=== PATIENT | female | born 1950 | race Caucasian/White ===

== ENCOUNTER 2018-10-13 02:55 | Emergency (ER) | payer SELFPAY ==
--- OUTSIDE RECORDS SUMMARY | 2018-10-13 02:58 | XMS REPORT | Clinical Summary ---
Author Author [facility] Organization [facility] Address Unknown Phone Unavailable Care Team Providers Care [employer] Faculty Name Role Phone Asked, No Pcp PCP Unavailable Allergies No Known Allergies Medications End Date Status Medication Sig Dispensed Refills Start Date Active insulin 70/30 NPH and Inject under 0 regular human (HumuLIN the skin 2 70/30) 100 unit/mL (two) times a (70-30) injection day before meals. 05/17/2018 metroNIDAZOLE (FLAGYL) Take 1 tablet 15 tablet 0 500 MG tablet (500 mg 9 total) by mouth 3 (three) times a day for 5 days. 05/17/2018 ciprofloxacin HCl (CIPRO) Take 1 tablet 10 tablet 0 500 MG tablet (500 mg 9 total) by mouth 2 (two) times a day for 5 days. 05/19/2018 acetaminophen-codeine Take 1 tablet 21 tablet 0 (TYLENOL WITH CODEINE #3) by mouth 9 300-30 mg per tablet every 8 (eight) hours as needed for moderate pain for up to 7 days. 06/11/2018 lisinopril Take 1 tablet 30 tablet 0 (PRINIVIL,ZESTRIL) 20 mg (20 mg total) 9 tablet by mouth daily for 30 days. Active Problems Problem Noted Date Acute diverticulitis 05/09/2018 Encounters Care Team Description Date Type Specialty Brandon Oakes MD Yerramadha, Muralidhar Reddy, MD Acute diverticulitis (Primary Dx); Lower abdominal pain; Leukocytosis, unspecified type; Dehydration; Hyponatremia; Urinary tract infection with hematuria, site unspecified; Essential hypertension, benign 05/08/2018 [facility] General Internal Medicine - Encounter 05/12/2018 after 10/12/2017 Social History Date Tobacco Use Types Packs/Day Years Used Current Every Day Smoker 0.5 Smokeless Tobacco: Current User Alcohol Use Drinks/Week oz/Week Comments No Alcohol Habits Answer Date Recorded How often do you have a drink containing alcohol? Never 05/09/2018 How many drinks containing alcohol do you have on Not asked a typical day when you are drinking? How often do you have six or more drinks on one Not asked occasion? Sex Assigned at Date Recorded Not on file Industry Job Start Date Occupation Not on file Not on file Not on file Travel End Travel History Travel Start No recent travel history available. Last Filed Vital Signs Time Taken Vital Sign Reading 05/12/2018 11:19 AM RESOURCE DEVELOPMENT MANAGER Blood Pressure 174/74 05/12/2018 11:19 AM RESOURCE DEVELOPMENT MANAGER Pulse 77 05/12/2018 11:19 AM RESOURCE DEVELOPMENT MANAGER Temperature 36.4 C (97.6 F) 05/12/2018 11:19 AM RESOURCE DEVELOPMENT MANAGER Respiratory Rate 18 05/12/2018 11:19 AM RESOURCE DEVELOPMENT MANAGER Oxygen Saturation 93% - Inhaled Oxygen - Concentration - Weight - 05/08/2018 10:40 PM RESOURCE DEVELOPMENT MANAGER Height 162.6 cm (5' 4") - Body Mass Index - Plan of Treatment Health Maintenance Due Date Last Done Comments BREAST CANCER SCREENING 2002 COLONOSCOPY SCREENING 2002 SHINGLES VACCINES (#1) 2002 65+ PNEUMOCOCCAL VACCINE 2017 (1 of 2 - PCV13) INFLUENZA VACCINE 10/26/2018 Procedures Comments Procedure Name Priority Date/Time Associated Diagnosis POC GLUCOSE Routine 05/12/2018 11:21 AM RESOURCE DEVELOPMENT MANAGER ESTIMATED GFR Routine 05/12/2018 5:51 AM RESOURCE DEVELOPMENT MANAGER BASIC METABOLIC PANEL Routine 05/12/2018 5:51 AM RESOURCE DEVELOPMENT MANAGER HC COMPLETE BLD COUNT Routine 05/12/2018 W/AUTO DIFF 5:51 AM RESOURCE DEVELOPMENT MANAGER POC GLUCOSE Routine 05/12/2018 5:42 AM RESOURCE DEVELOPMENT MANAGER POC GLUCOSE Routine 05/11/2018 9:00 PM RESOURCE DEVELOPMENT MANAGER POC GLUCOSE Routine 05/11/2018 4:23 PM RESOURCE DEVELOPMENT MANAGER POC GLUCOSE Routine 05/11/2018 11:07 AM RESOURCE DEVELOPMENT MANAGER HC COMPLETE BLD COUNT Routine 05/11/2018 W/AUTO DIFF 6:15 AM RESOURCE DEVELOPMENT MANAGER POC GLUCOSE Routine 05/11/2018 6:10 AM RESOURCE DEVELOPMENT MANAGER POC GLUCOSE Routine 05/10/2018 8:29 PM RESOURCE DEVELOPMENT MANAGER POC GLUCOSE Routine 05/10/2018 3:57 PM RESOURCE DEVELOPMENT MANAGER POC GLUCOSE Routine 05/10/2018 11:14 AM RESOURCE DEVELOPMENT MANAGER POC GLUCOSE Routine 05/10/2018 5:38 AM RESOURCE DEVELOPMENT MANAGER ESTIMATED GFR Routine 05/10/2018 5:30 AM RESOURCE DEVELOPMENT MANAGER HC COMPLETE BLD COUNT Routine 05/10/2018 W/AUTO DIFF 5:30 AM RESOURCE DEVELOPMENT MANAGER BASIC METABOLIC PANEL Routine 05/10/2018 5:30 AM RESOURCE DEVELOPMENT MANAGER CLOSTRIDIUM DIFFICILE Routine 05/10/2018 TOXIN 12:14 AM RESOURCE DEVELOPMENT MANAGER POC GLUCOSE Routine 05/09/2018 8:05 PM RESOURCE DEVELOPMENT MANAGER POC GLUCOSE Routine 05/09/2018 5:16 PM RESOURCE DEVELOPMENT MANAGER POC GLUCOSE Routine 05/09/2018 12:26 PM RESOURCE DEVELOPMENT MANAGER LACTIC ACID LEVEL, SEPSIS Timed 05/09/2018 - NOW AND REPEAT 2X EVERY 6:38 AM RESOURCE DEVELOPMENT MANAGER 3 HOURS POC GLUCOSE Routine 05/09/2018 6:27 AM RESOURCE DEVELOPMENT MANAGER LACTIC ACID LEVEL, SEPSIS Timed 05/09/2018 - NOW AND REPEAT 2X EVERY 4:33 AM RESOURCE DEVELOPMENT MANAGER [address] ABDOMEN PELVIS W STAT 05/09/2018 CONTRAST 12:05 AM RESOURCE DEVELOPMENT MANAGER GRAM STAIN STAT 05/08/2018 11:40 PM RESOURCE DEVELOPMENT MANAGER URINE CULTURE STAT 05/08/2018 11:40 PM RESOURCE DEVELOPMENT MANAGER ESTIMATED GFR STAT 05/08/2018 11:15 PM RESOURCE DEVELOPMENT MANAGER TROPONIN STAT 05/08/2018 11:15 PM RESOURCE DEVELOPMENT MANAGER CREATINE KINASE, TOTAL STAT 05/08/2018 (CPK) 11:15 PM RESOURCE DEVELOPMENT MANAGER LIPASE LEVEL STAT 05/08/2018 11:15 PM RESOURCE DEVELOPMENT MANAGER LACTIC ACID LEVEL, SEPSIS STAT 05/08/2018 - NOW AND REPEAT 2X EVERY 11:15 PM RESOURCE DEVELOPMENT MANAGER 3 HOURS COMPREHENSIVE METABOLIC STAT 05/08/2018 PANEL 11:15 PM RESOURCE DEVELOPMENT MANAGER URINALYSIS SCREEN AND STAT 05/08/2018 MICROSCOPY, WITH REFLEX 11:15 PM RESOURCE DEVELOPMENT MANAGER TO CULTURE PARTIAL THROMBOPLASTIN STAT 05/08/2018 TIME (PTT) 11:15 PM RESOURCE DEVELOPMENT MANAGER PROTHROMBIN TIME WITH INR STAT 05/08/2018 11:15 PM RESOURCE DEVELOPMENT MANAGER HC COMPLETE BLD COUNT STAT 05/08/2018 W/AUTO DIFF 11:15 PM RESOURCE DEVELOPMENT MANAGER ECG ED PRELIMINARY Routine 05/08/2018 INTERPRETATION 11:00 PM RESOURCE DEVELOPMENT MANAGER XR CHEST 1 VW PORTABLE STAT 05/08/2018 10:55 PM RESOURCE DEVELOPMENT MANAGER ECG 12-LEAD STAT 05/08/2018 10:49 PM RESOURCE DEVELOPMENT MANAGER after 10/12/2017 Results * POC glucose (05/12/2018 11:21 AM RESOURCE DEVELOPMENT MANAGER) Only the most recent of 14 results within the time period is included. [facility] POC glucose 135 (H) 65 - 99 mg/dL [facility] Comment: [facility] Meter ID: [id number] [facility] Extractor Operator Solvent Process: Herman Larsen Specimen Performing Organization Address City/State/Zipcode [place] [address] [place] [address] PATHOLOGY AND GENOMIC MEDICINE [facility] [place] [address] [address] [facility] * Estimated GFR (05/12/2018 5:51 AM RESOURCE DEVELOPMENT MANAGER) Only the most recent of 3 results within the time period is included. [facility] Estimated GFR >=90 mL/min/1.73 m2 [facility] Comment: [facility] rpretation G1 >=90 Normal or high G2 60-89Mildly decreased [id number] Mildly to moderately decreased [id number] Moderately to severely decreased G4 15-29Severely decreased G5 <15Kidney failure The eGFR was calculated using the Chronic Kidney Disease Epidemiology Collaboration (CKD-EPI) equation. Interpretation is based on recommendations of the National Kidney Foundation-Kidney Disease Outcomes Quality Initiative (NKF-KDOQI) published in 2014. Specimen Plasma specimen Performing Organization Address City/State/Zipcode [place] [address] [place] [address] [facility] [address] [place] [address] [facility] * CBC with platelet and differential (05/12/2018 5:51 AM RESOURCE DEVELOPMENT MANAGER) Only the most recent of 4 results within the time period is included. WBC 12.69 (H) 4.50 - 11.00 k/uL [facility] RBC 4.90 4.20 - 5.50 m/uL [facility] HGB 13.8 12.0 - 16.0 g/dL [facility] HCT 42.4 37.0 - 47.0 % [facility] MCV 86.5 82.0 - 100.0 fL [facility] MCH 28.2 27.0 - 34.0 pg [facility] MCHC 32.5 31.0 - 37.0 g/dL [facility] RDW - SD 37.2 37.0 - 55.0 fL [facility] MPV 9.5 8.8 - 13.2 fL [facility] Platelet count 493 (H) 150 - 400 k/uL [facility] Nucleated RBC 0.00 /100 WBC [facility] Neutrophils 63.6 39.0 - 69.0 % [facility] Lymphocytes 22.9 (L) 25.0 - 45.0 % [facility] Monocytes 11.0 (H) 0.0 - 10.0 % [facility] Eosinophils 1.3 0.0 - 5.0 % [facility] Basophils 0.6 0.0 - 1.0 % [facility] Specimen Blood Performing Organization Address [facility] Phone Number [address] [place] [address] PATHOLOGY AND GENOMIC MEDICINE [address] * Basic metabolic panel (05/12/2018 5:51 AM RESOURCE DEVELOPMENT MANAGER) Only the most recent of 2 results within the time period is included. [facility] Sodium 135 135 - 148 mEq/L [facility] Potassium 3.9 3.5 - 5.0 mEq/L [facility] Chloride 96 (L) 98 - 112 mEq/L [facility] CO2 25 24 - 31 mEq/L [facility] Anion gap 14@ANIO 7 - 15 mEq/L [facility] BUN 9 8 - 23 mg/dL [facility] Creatinine 0.50 0.50 - 0.90 mg/dL [facility] Glucose 143 (H) 65 - 99 mg/dL [facility] Calcium 8.9 8.8 - 10.2 mg/dL [facility] Specimen Plasma specimen Performing Organization Address [facility] Phone Number [address] [place] [address] PATHOLOGY AND [facility] MEDICINE [address] * C difficile toxin (05/10/2018 12:14 AM RESOURCE DEVELOPMENT MANAGER) [facility] Clostridium No Clostridium difficle toxin [facility] difficile toxin present [facility] Comment: HOSPITAL Specimen Information Specimen Source: Stool Specimen Site: Nonpreserved Specimen Stool - Nonpreserved Performing Organization Address City/[facility]/Zipcode Phone Number [facility] [place] [address] PATHOLOGY [address] * Lactic acid level, SEPSIS - Now and repeat 2x every 3 hours (05/09/2018 6:38 AM RESOURCE DEVELOPMENT MANAGER) Only the most recent of 3 results within the time period is included. [facility] Lactic acid 1.4 0.5 - 2.2 mmol/L [facility] Specimen Plasma specimen Performing Organization Address City/State/Zipcode [place] [address] [place] [address] [address] [facility] [address] [place] [address] [facility] * CT Abdomen Pelvis W Contrast (05/09/2018 12:05 AM RESOURCE DEVELOPMENT MANAGER) Specimen Narrative Performed At CT ABDOMEN PELVIS W CONTRAST RADIANT CLINICAL INDICATION: lower abd pain TECHNIQUE:Multidetector CT imaging of the abdomen and pelvis was performed following the intravenous administration of iodinated contrast with multiplanar reconstructions.CT imaging was performed with iterative reconstruction technique and/or automated exposure control to reduce radiation dose. COMPARISON:None FINDINGS: LOWER THORAX:Clear. LIVER:Normal. BILIARY:Normal. SPLEEN:Normal. PANCREAS:Normal. ADRENALS:Normal. KIDNEYS:No mass or hydronephrosis. GI: There is diverticulosis of the sigmoid colon with wall thickening and pericolonic edema of the proximal sigmoid colon. There is thin soft tissue thickening/fluid extending from this inflamed sigmoid colon to the superior aspect of the urinary bladder without a definite fistulous tract. There is associated wall thickening of the superior urinary bladder. There is dilation of multiple loops of proximal small bowel, measuring up to a maximum of 3.4 cm in diameter. There is a transition point located within the left lower quadrant. VASCULAR:There is calcified atherosclerotic disease of the abdominal aorta and iliac arteries. The abdominal aorta is normal in caliber. LYMPH NODES:There are prominent subcentimeter iliac chain, retroperitoneal, and mesenteric root lymph nodes, which are likely reactive in nature. PELVIS:There is wall thickening of the superior aspect of the urinary bladder. There is a calcified uterine fibroid. BONES:There are no acute osseous abnormalities. OTHER:There is no ascites or pneumoperitoneum. IMPRESSION: 1. Sigmoid colon diverticulitis with a thin tract of inflammation extending from the colon to the superior aspect of the urinary bladder. No definite colovesicular fistula is identified at this time, but there is reactive inflammation of the urinary bladder. 2. Low to moderate grade small bowel obstruction with the transition point located in the left lower quadrant. [facility]-[id number] Procedure Note Interface, Radiology Results Incoming - 05/09/2018 12:20 AM RESOURCE DEVELOPMENT MANAGER CT ABDOMEN PELVIS W CONTRAST CLINICAL INDICATION: lower abd pain TECHNIQUE: Multidetector CT imaging of the abdomen and pelvis was performed following the intravenous administration of iodinated contrast with multiplanar reconstructions. CT imaging was performed with iterative reconstruction technique and/or automated exposure control to reduce radiation dose. COMPARISON: None FINDINGS: LOWER THORAX: Clear. LIVER: Normal. BILIARY: Normal. SPLEEN: Normal. PANCREAS: Normal. ADRENALS: Normal. KIDNEYS: No mass or hydronephrosis. GI: There is diverticulosis of the sigmoid colon with wall thickening and pericolonic edema of the proximal sigmoid colon. There is thin soft tissue thickening/fluid extending from this inflamed sigmoid colon to the superior aspect of the urinary bladder without a definite fistulous tract. There is associated wall thickening of the superior urinary bladder. There is dilation of multiple loops of proximal small bowel, measuring up to a maximum of 3.4 cm in diameter. There is a transition point located within the left lower quadrant. VASCULAR: There is calcified atherosclerotic disease of the abdominal aorta and iliac arteries. The abdominal aorta is normal in caliber. LYMPH NODES: There are prominent subcentimeter iliac chain, retroperitoneal, and mesenteric root lymph nodes, which are likely reactive in nature. PELVIS: There is wall thickening of the superior aspect of the urinary bladder. There is a calcified uterine fibroid. BONES: There are no acute osseous abnormalities. OTHER: There is no ascites or pneumoperitoneum. IMPRESSION: 1. Sigmoid colon diverticulitis with a thin tract of inflammation extending from the colon to the superior aspect of the urinary bladder. No definite colovesicular fistula is identified at this time, but there is reactive inflammation of the urinary bladder. 2. Low to moderate grade small bowel obstruction with the transition point located in the left lower quadrant. [facility]-[id number] Performing Organization Address City/[facility]/Zipcode Phone Number [facility] [address] [place] [address] * Gram stain (05/08/2018 11:40 PM RESOURCE DEVELOPMENT MANAGER) Gram stain No WBC's or organisms seen. [facility] result Comment: [facility] Specimen Information HOSPITAL Specimen Source: Urine Specimen Site: Clean catch Specimen Urine Performing Organization Address City/[facility]/Zipcode Phone Number [facility] DEPARTMENT [address] [address] PATHOLOGY AND GENOMIC MEDICINE [facility] [address] * Urine culture (05/08/2018 11:40 PM RESOURCE DEVELOPMENT MANAGER) Urine culture Klebsiella pneumoniae JARED isolate >10-5 cfu/ml [facility] The performance HOSPITAL characteristics of this assay on this isolate were validated by the Microbiology Laboratory at [facility].This source has not been approved by the U.S. Food and Drug Administration.The results are not intended to be used as the sole means for clinical diagnosis or patient management.The Microbiology Laboratory is authorized under the clinical Laboratory Improvement Amendments of 1988 (CLIA-88) to perform high complexity testing. (A) Comment: Specimen Information Specimen Source: Urine Specimen Site: Clean catch Urine culture Escherichia coli JARED isolate >10-5 cfu/ml [facility] (A) HOSPITAL Specimen Urine Antibiotic Method Susceptibility Organism Ampicillin JAZZMINE >16 mcg/mL: Resistant Klebsiella pneumoniae Amoxicillin/Clavulanate JAZZMINE <=2/1 mcg/mL: Susceptible Klebsiella pneumoniae Amikacin JAZZMINE <=4 mcg/mL: Susceptible Klebsiella pneumoniae Aztreonam JAZZMINE <=1 mcg/mL: Susceptible Klebsiella pneumoniae Ceftazidime JAZZMINE <=0.5 mcg/mL: Susceptible Klebsiella pneumoniae Ciprofloxacin JAZZMINE <=0.5 mcg/mL: Susceptible Klebsiella pneumoniae Ceftriaxone JAZZMINE <=0.5 mcg/mL: Susceptible Klebsiella pneumoniae Cefuroxime Sodium JAZZMINE <=4 mcg/mL: Susceptible Klebsiella pneumoniae Cefazolin JAZZMINE <=1 mcg/mL: Susceptible Klebsiella pneumoniae Cefepime JAZZMINE <=0.5 mcg/mL: Susceptible Klebsiella pneumoniae Nitrofurantoin JAZZMINE 64 mcg/mL: Resistant Klebsiella pneumoniae Cefoxitin JAZZMINE <=4 mcg/mL: Susceptible Klebsiella pneumoniae Gentamicin JAZZMINE 1 mcg/mL: Susceptible Klebsiella pneumoniae Imipenem JAZZMINE <=0.25 mcg/mL: Susceptible Klebsiella pneumoniae Levofloxacin JAZZMINE <=1 mcg/mL: Susceptible Klebsiella pneumoniae Meropenem JAZZMINE <=0.125 mcg/mL: Susceptible Klebsiella pneumoniae Tobramycin JAZZMINE 1 mcg/mL: Susceptible Klebsiella pneumoniae Ampicillin/Sulbactam JAZZMINE 8/4 mcg/mL: Susceptible Klebsiella pneumoniae Trimethoprim/Sulfamethoxazole JAZZMINE <=0.5/9.5 mcg/mL: Susceptible Klebsiella pneumoniae Tetracycline JAZZMINE 2 mcg/mL: Susceptible Klebsiella pneumoniae Piperacillin/Tazobactam JAZZMINE 4/4 mcg/mL: Susceptible Klebsiella pneumoniae Ertapenem JAZZMINE <=0.125 mcg/mL: Susceptible Klebsiella pneumoniae Tigecycline JAZZMINE 1 mcg/mL: Susceptible Klebsiella pneumoniae Ampicillin JAZZMINE <=2 mcg/mL: Susceptible Escherichia coli Amoxicillin/Clavulanate JAZZMINE 4/2 mcg/mL: Susceptible Escherichia coli Amikacin JAZZMINE <=4 mcg/mL: Susceptible Escherichia coli Aztreonam JAZZMINE <=1 mcg/mL: Susceptible Escherichia coli Ceftazidime JAZZMINE <=0.5 mcg/mL: Susceptible Escherichia coli Ciprofloxacin JAZZMINE <=0.5 mcg/mL: Susceptible Escherichia coli Ceftriaxone JAZZMINE <=0.5 mcg/mL: Susceptible Escherichia coli Cefuroxime Sodium JAZZMINE <=4 mcg/mL: Susceptible Escherichia coli Cefazolin JAZZMINE <=1 mcg/mL: Susceptible Escherichia coli Cefepime JAZZMINE <=0.5 mcg/mL: Susceptible Escherichia coli Nitrofurantoin JAZZMINE 32 mcg/mL: Susceptible Escherichia coli Cefoxitin JAZZMINE <=4 mcg/mL: Susceptible Escherichia coli Gentamicin JAZZMINE <=1 mcg/mL: Susceptible Escherichia coli Imipenem JAZZMINE <=0.25 mcg/mL: Susceptible Escherichia coli Levofloxacin JAZZMINE <=1 mcg/mL: Susceptible Escherichia coli Meropenem JAZZMINE <=0.125 mcg/mL: Susceptible Escherichia coli Tobramycin JAZZMINE 1 mcg/mL: Susceptible Escherichia coli Ampicillin/Sulbactam JAZZMINE 4/2 mcg/mL: Susceptible Escherichia coli Trimethoprim/Sulfamethoxazole JAZZMINE <=0.5/9.5 mcg/mL: Susceptible Escherichia coli Tetracycline JAZZMINE <=1 mcg/mL: Susceptible Escherichia coli Piperacillin/Tazobactam JAZZMINE <=2/4 mcg/mL: Susceptible Escherichia coli Ertapenem JAZZMINE <=0.125 mcg/mL: Susceptible Escherichia coli Tigecycline JAZZMINE <=0.5 mcg/mL: Susceptible Escherichia coli Performing Organization Address City/State/Zipcode Phone Number [facility] DEPARTMENT OF [address] [place] [address] PATHOLOGY AND GENOMIC MEDICINE [address] * Urinalysis screen and microscopy, with reflex to culture (05/08/2018 11:15 PM RESOURCE DEVELOPMENT MANAGER) Specimen site Clean catch [facility] Color, UA Yellow [facility] Appearance, UA Slightly-Cloudy [facility] Specific 1.026 1.001 - 1.035 [facility] gravity, UA [facility] pH, UA 5.0 5.0 - 8.5 [facility] Protein, UA 1+ (A) Negative [facility] Glucose, UA Negative Negative [facility] Ketones, UA 1+ (A) Negative [facility] Bilirubin, UA Negative Negative [facility] Blood, UA Large (A) Negative [facility] Nitrite, UA Negative Negative [facility] Urobilinogen, Negative <2.0 [facility] Leukocyte Trace (A) Negative [facility] esterase, UA [facility] Epithelial Many /HPF [facility] cells, UA [facility] Round Few 0 - 1 /HPF [facility] epithelial [facility], [facility] WBC, UA 11-20 (H) 0 - 4 /HPF [facility] RBC, UA 61-80 (H) 0 - 5 /HPF [facility] Bacteria, UA Trace None seen [facility] Yeast, UA None seen [facility] Yeast with None seen [facility] Specimen Urine Performing Organization Address City/[facility] Phone Number [address] [place] [address] PATHOLOGY AND GENOMIC MEDICINE [address] * Troponin (05/08/2018 11:15 PM RESOURCE DEVELOPMENT MANAGER) [facility] Troponin <0.300 0.000 - 0.300 ng/mL [facility] Comment: [facility] 0.30 - 1.49 [facility] ng/mlMay indicate increased risk of acute coronary syndrome. >=1.5 ng/ml Consistent with acute myocardial infarction. The diagnostic value of a single normal or non-diagnostic result is questionable.Serial samples at 2-6 hour intervals are required to rule out acute myocardial injury. Specimen Plasma specimen Performing Organization Address [facility] Phone Number [address] [place] [address] PATHOLOGY AND GENOMIC MEDICINE [address] * Partial thromboplastin time, activated (05/08/2018 11:15 PM RESOURCE DEVELOPMENT MANAGER) [facility] PTT 38.2 (H) 23.0 - 36.0 sec [facility] Comment: EMIL [facility]OLCOM[facility] PTT therapeutic range for [facility] unfractionated heparin is 61.0-112.0 seconds which corresponds to Anti-Xa 0.3-0.7 U/ml. Specimen Blood Performing Organization Address [facility] Phone Number [address] [place] [address] PATHOLOGY AND [address] * Prothrombin time with INR (05/08/2018 11:15 PM RESOURCE DEVELOPMENT MANAGER) Prothrombin 14.1 11.5 - 14.5 sec [facility] INR 1.1 [facility] Comment: EMIL HOLCOM[facility] The International Normalized [facility] Ratio (INR) is a therapeutic monitoring tool for patients who are stable on oral anticoagulant therapy. An INR of 2.0-3.0 is suggested for deep vein thrombosis/pulmonary embolism. Specimen Blood Performing Organization Address [facility] Phone Number [address] [place] [address] PATHOLOGY AND [address] * Lipase level (05/08/2018 11:15 PM RESOURCE DEVELOPMENT MANAGER) Pathologist [facility] Lipase 12 (L) 13 - 60 U/L [facility] Specimen Plasma specimen Performing Organization Address [facility] Phone Number [address] [place] [address] PATHOLOGY [address] * Creatine kinase, total (CPK) (05/08/2018 11:15 PM RESOURCE DEVELOPMENT MANAGER) Creatine kinase 50 26 - 192 U/L [facility] Specimen Plasma specimen Performing Organization Address [facility] Phone Number [address] [place] [address] PATHOLOGY AND [address] * Comprehensive metabolic panel (05/08/2018 11:15 PM RESOURCE DEVELOPMENT MANAGER) Sodium 132 (L) 135 - 148 mEq/L [facility] Potassium 3.7 3.5 - 5.0 mEq/L [facility] Chloride 93 (L) 98 - 112 mEq/L [facility] CO2 26 24 - 31 mEq/L [facility] Anion gap 13@ANIO 7 - 15 mEq/L [facility] BUN 29 (H) 8 - 23 mg/dL [facility] Creatinine 0.70 0.50 - 0.90 mg/dL [facility] Glucose 229 (H) 65 - 99 mg/dL [facility] Calcium 9.2 8.8 - 10.2 mg/dL [facility] Protein 9.1 (H) 6.3 - 8.3 g/dL [facility] Comment: [facility] 4.6-7.0 g/dL 1 week 4.4-7.6 g/dL 7 months-1year 5.1-7.3 g/dL 1-2 years5.6-7 .5 g/dL >3 years6.0-8 .0 g/dL 18-150 6.3-8.3 g/dL Albumin 4.1 3.5 - 5.0 g/dL [facility] A/G ratio 0.8 0.7 - 3.8 [facility] Alkaline 91 35 - 104 U/L [facility] phosphatase [facility] AST 17 10 - 35 U/L [facility] ALT 13 5 - 50 U/L [facility] Total bilirubin 0.5 0.0 - 1.2 mg/dL [facility] Specimen Plasma specimen Performing Organization Address City/State/Zipcode Phone Number [facility] [id number] [place] [address] [place] [address] [address] [facility] [id number] [place] [address] * ECG ED Preliminary Interpretation - Not an Order (05/08/2018 11:00 PM RESOURCE DEVELOPMENT MANAGER) Narrative Performed At Peggy Smart NP-C 05/09/2018 11:56 AM ECG ED Preliminary Interpretation - Not an Order Performed by: Peggy Smart NP-C Authorized by: Brandon Oakes MD ECG reviewed by ED Physician in the absence of a manufacturing supervisor 2nd shift: yes Previous ECG: Previous ECG:Unavailable Interpretation: Interpretation: abnormal Rate: ECG rate:97 ECG rate assessment: normal Rhythm: Rhythm: sinus rhythm Ectopy: Ectopy: PVCs PVCs:Infrequent QRS: QRS axis:Normal Conduction: Conduction: normal ST segments: ST segments:Non-specific T waves: T waves: non-specific * XR Chest 1 Vw Portable (05/08/2018 10:55 PM RESOURCE DEVELOPMENT MANAGER) Specimen Narrative Performed At EXAMINATION:XR CHEST 1 VW PORTABLE [facility] CLINICAL HISTORY:abd pain COMPARISON:To previous study from 03/10/2012 IMPRESSION: Clips are present projected over the right chest. The heart is normal in appearance, and the lungs are clear. [facility]-[id number] Procedure Note Hm Interface, Radiology Results Incoming - 05/08/2018 11:01 PM RESOURCE DEVELOPMENT MANAGER EXAMINATION: XR CHEST 1 VW PORTABLE CLINICAL HISTORY: abd pain COMPARISON: To previous study from 03/10/2012 IMPRESSION: Clips are present projected over the right chest. The heart is normal in appearance, and the lungs are clear. [facility]-[id number] Performing Organization Address City/[facility] Phone Number [facility] [address] [place] [address] * ECG 12 lead (05/08/2018 10:49 PM RESOURCE DEVELOPMENT MANAGER) Ventricular 97 [facility] rate Atrial rate 97 [facility] VT interval 126 [facility] QRSD interval 74 [facility] QT interval 340 [facility] QTC interval 431 [facility] P axis 1 73 [facility] QRS axis 1 50 [facility] T wave axis 61 [facility] EKG impression Sinus rhythm with occasional [facility] premature ventricular complexes-Nonspecific ST and T wave abnormality-Abnormal ECG-In automated comparison with ECG of 07-MAR-2012 16:50,-premature ventricular complexes are now present-ST now depressed in Anterior leads- Specimen Narrative Performed At Performing Organization Address City/[facility] Phone Number [facility] [address] [place] [address] after 10/12/2017 Insurance Type Payer Benefit Subscriber ID Effective Phone Address Plan / Dates Group Medicaid PENDING MEDICAID PENDING xxxxxxxxx 2018- [address] MEDICAID Present [id number] [place] [address] Medicare MEDICARE MEDICARE xxxxxxxxxxx 2017-P JARED, PART A AND resent [place] B Advance Directives Patient has advance care planning documents on file. For more information, queenie carrillo contact: Jared Saleh [address] [place] [address]
--- OUTSIDE RECORDS SUMMARY | 2018-10-13 02:58 | XMS REPORT ---
[facility] Address Unknown Phone Unavailable Care Team Providers Care Head Strength And Conditioning Coach Name Role Phone Unavailable Unavailable Problems This patient has no known problems. Allergies, Adverse Reactions, Alerts This patient has no known allergies or adverse reactions. Medications This patient has no known medications. Encounters Start Date/Time End Date/Time Encounter Type Admission Type Attending [facility] Care Department Encounter ID 2017-07-01 00:00:00 2017-07-01 00:00:00 Outpatient [facility] [id number] 2017-07-01 00:00:00 2017-07-01 00:00:00 Outpatient [facility] [id number] 2017-07-01 00:00:00 2017-07-01 00:00:00 Outpatient [facility] [id number] 2017-06-01 15:43:18 2017-06-01 15:43:18 Outpatient [facility] [id number] 2017-04-20 00:00:00 2017-04-20 00:00:00 Outpatient [facility] [id number] 2017-04-12 00:00:00 2017-04-12 00:00:00 Outpatient [facility] [id number] 2017-04-08 00:00:00 2017-04-08 00:00:00 Outpatient [facility] [id number] 2017-04-08 00:00:00 2017-04-08 00:00:00 Outpatient [facility] [id number] 2017-03-14 12:30:44 2017-03-14 12:30:44 Outpatient [facility] [id number] 2017-03-04 09:59:58 2017-03-04 09:59:58 Outpatient [facility] [id number] 2017-03-04 09:52:32 2017-03-04 09:52:32 Outpatient [facility] [id number] 2017-03-04 00:00:00 2017-03-04 00:00:00 Outpatient [facility] [id number] 2017-01-24 00:00:00 2017-01-24 00:00:00 Outpatient [facility] [id number] 2016-09-10 00:00:00 2016-09-10 00:00:00 Outpatient [facility] [id number] 2016-09-03 09:09:37 2016-09-03 09:09:37 Outpatient [facility] [id number] 2016-09-03 07:51:47 2016-09-03 07:51:47 Outpatient [facility] [id number] 2016-08-18 11:33:00 2016-08-18 11:33:00 Emergency [facility] [id number]
== END 2018-10-13 03:16 | disposition left against medical advice (07) ==
LOC: ER 02:55
DX: Z53.21 Procedure and treatment not carried out due to patient leaving prior to being seen by health care provider (principal)

== ENCOUNTER 2018-10-16 13:37 | Inpatient (IN) | payer MEDICARE ==
[~2018-10-16] VITALS: Ht 162.6 cm; Wt 70.8 kg
[2018-10-16] MEDS ORDERED: DIATRIZOATE MEGL/DIATRIZOA SOD 30 ML BTL PO ONE (14:26)
[2018-10-16 14:43] LABS: BASOPHILS # (AUTO) 0.1 (0.0-0.1); BASOPHILS % 0.6 % (0.0-1.0); EOSINOPHILS # (AUTO) 0.3 (0.0-0.4); EOSINOPHILS % 1.4 % (0.0-6.0); HEMATOCRIT 48.5 % (34.2-44.1); HEMOGLOBIN 16.5 g/dL (12.0-16.0); LYMPHOCYTES # (AUTO) 5.8 (1.0-3.2); LYMPHOCYTES % 25.8 % (18.0-39.1); MEAN CORPUSCULAR HEMOGLOBIN 29.3 pg (28-32); MONOCYTES # (AUTO) 2.1 (0.2-0.8); MONOCYTES % 9.3 % (4.4-11.3); NEUTROPHILS # (AUTO) 13.9 (2.1-6.9); NEUTROPHILS % 62.3 % (38.7-80.0); PLATELET COUNT 697 x10e3/uL (140-360); RED BLOOD COUNT 5.64 x10e6/uL (3.6-5.1)
[2018-10-16 15:02] LABS: AMYLASE 34 U/L (25-125); LIPASE 18 U/L (8-78)
[2018-10-16 15:03] LABS: ALANINE AMINOTRANSFERASE 17 IU/L (0-55); ALBUMIN 3.6 g/dL (3.5-5.0); ALBUMIN/GLOBULIN RATIO 0.6 (0.8-2.0); ALKALINE PHOSPHATASE 110 IU/L (40-150); ANION GAP 17.8 mmol/L (8-16); BLOOD UREA NITROGEN 17 mg/dL (7-26); BUN/CREATININE RATIO 20 (6-25); CALCIUM 10.3 mg/dL (8.4-10.2); CARBON DIOXIDE 26 mmol/L (22-29); CHLORIDE 99 mmol/L (98-107); CREATININE, SERUM 0.87 mg/dL (0.57-1.11); EST GLOMERULAR FILTRATION RATE > 60 ML/MIN (60-); GLUCOSE 137 mg/dL (74-118); POTASSIUM 3.8 mmol/L (3.5-5.1); SODIUM 139 mmol/L (136-145)
[2018-10-16 15:48] LABS: BILIRUBIN,URINE MODERATE (NEGATIVE); CLARITY,URINE CLOUDY (CLEAR); COLOR,URINE YELLOW (YELLOW); KETONES,URINE TRACE (NEGATIVE); LEUKOCYTE ESTERASE ,URINE SMALL (NEGATIVE); NITRITE,URINE NEGATIVE (NEGATIVE); URINE UROBILINOGEN 0.2 mg/dL (0.2 - 1)
[2018-10-16 15:53] LABS: PROTEIN,URINE DIPSTICK 3+ (NEGATIVE)
[2018-10-16 16:14] LABS: AMORPHOUS SEDIMENT,URINE MODERATE (FEW); BACTERIA,URINE MANY /HPF; CALCIUM OXALATE CRYSTALS,UR MANY (FEW); EPITHELIAL CELLS,URINE MANY /LPF; WBC,URINE (MAN) 21-50 /HPF (0-5)
--- NOTE | 2018-10-16 16:22 | Diagnostic Imaging Report ---
EXAM: CT Abdomen and Pelvis WITH intravenous contrast INDICATION: Lower abdominal pain, diarrhea COMPARISON: None. TECHNIQUE: Abdomen and pelvis were scanned utilizing a multidetector helical scanner from the lung base to the pubic symphysis after administration of IV contrast. Coronal and sagittal reformations were obtained. Routine protocol was performed. Scan was performed when during portal venous phase. IV CONTRAST: 100mL of Isovue 370 ORAL CONTRAST: Gastrografin COMPLICATIONS: None RADIATION DOSE: Total DLP: 318.4 mGy*cm Dose modulation, iterative reconstruction, and/or weight based adjustment of the mA/kV was utilized to reduce the radiation dose to as low as reasonably achievable. FINDINGS: LOWER THORAX: No focal consolidation at the lung bases. Mild scattered atherosclerotic calcifications of coronary arteries. HEPATOBILIARY: Diffuse hypoattenuation of the hepatic parenchyma consistent with hepatic steatosis. No focal liver lesions. No biliary ductal dilatation. The gallbladder appears unremarkable. SPLEEN: No splenomegaly. PANCREAS: No focal masses or ductal dilatation. ADRENALS: 1.1 cm right adrenal nodule, indeterminate on single phase contrast-enhanced images. No left adrenal nodule. KIDNEYS/URETERS: No hydronephrosis, stones, or solid mass lesions. PELVIC ORGANS/BLADDER: Unremarkable. PERITONEUM / RETROPERITONEUM: No free air or fluid. LYMPH NODES: No lymphadenopathy. VESSELS: Catheter scrotal calcifications of the abdominal aorta and major branches. GI TRACT: Sigmoid colonic diverticulosis with marked bowel wall thickening of in approximately 7 cm length of sigmoid colon associated with adjacent fat stranding and a 5.6 x 4.1 cm rim-enhancing fluid collection consistent with diverticular abscess. No evidence of bowel obstruction. BONES AND SOFT TISSUES: No acute osseous injury. Mild degenerative changes of the visualized spine. No suspicious lytic or blastic lesions. IMPRESSION: Perforated sigmoid diverticulitis with associated 5.6 x 4.1 cm diverticular abscess. Hepatic steatosis. Right adrenal 1.1 cm nodule is indeterminate on single phase contrast-enhanced images. Recommend 1 year follow-up adrenal mass protocol CT to assess for stability. Signed by: Ronnie Mcintyre MD on 10/16/2018 4:19 PM
[2018-10-16] MEDS ORDERED: SODIUM CHLORIDE 0.9% 1000ML 1,000 ML IV STA (17:22)
[2018-10-16] MEDS ORDERED: PANTOPRAZOLE 40 MG 10ML VIAL IV STA (17:22)
[2018-10-16] MEDS ORDERED: MORPHINE SULFATE 2 MG/ML SYR 1ML IV STA (17:22)
[2018-10-16] MEDS ORDERED: SODIUM CHLORIDE 0.9% 50ML 50 ML ONE (17:31)
[2018-10-16] MEDS ORDERED: IOPAMIDOL 370 MG/ML 200 ML INFUS..BTL INJ ONE (17:31)
[2018-10-16 17:34] LABS: ANISOCYTOSIS SLIGHT; EOSINOPHILS % (MANUAL) 2 % (0-7); LYMPHOCYTES % (MANUAL) 34 % (19-48); MONOCYTES % (MANUAL) 7 % (3.4-9.0); MYELOCYTES % (MANUAL) 1 % (0-0); NEUTROPHILS % (MANUAL) 49 % (40-74); PLATELET ESTIMATE SLIGHTLY INCREASED; PLATELET MORPHOLOGY COMMENT NORMAL; RBC MORPHOLOGY COMMENT NORMAL
[2018-10-16] MEDS: PIPER-TAZ 3.375 GM 50 ML IV SCH (17:42)
[2018-10-16] MEDS: SODIUM CHLORIDE 0.9% 1000ML 1,000 ML IV SCH (17:43)
--- OUTSIDE RECORDS SUMMARY | 2018-10-16 17:46 | XMS REPORT | Clinical Summary ---
Author Author [facility] [facility] [employer] Address Unknown Phone Unavailable Care Team Providers Care Major Gifts Officer Name Role Phone Asked, No Pcp PCP [...] hematuria, site unspecified; Essential hypertension, benign 05/08/2018 [facility] General Internal Medicine - Encounter 05/12/2018 after 10/15/2017 Social History Date Tobacco Use Types Packs/Day [...] Taken Vital Sign Reading 05/12/2018 11:19 AM SALES LEAD Blood Pressure 174/74 05/12/2018 11:19 AM SALES LEAD Pulse 77 05/12/2018 11:19 AM SALES LEAD Temperature 36.4 C (97.6 F) 05/12/2018 11:19 AM SALES LEAD Respiratory Rate 18 05/12/2018 11:19 AM SALES LEAD Oxygen Saturation 93% - Inhaled Oxygen - Concentration - Weight - 05/08/2018 10:40 PM SALES LEAD Height 162.6 cm (5' 4") - Body Mass Index - Plan of Treatment Health Maintenance Due Date Last Done Comments BREAST CANCER SCREENING 2002 COLONOSCOPY SCREENING 2002 SHINGLES VACCINES (#1) 2002 65+ PNEUMOCOCCAL VACCINE 2017 (1 of 2 - PCV13) INFLUENZA VACCINE 10/26/2018 Procedures Comments Procedure Name Priority Date/Time Associated Diagnosis POC GLUCOSE Routine 05/12/2018 11:21 AM SALES LEAD ESTIMATED GFR Routine 05/12/2018 5:51 AM SALES LEAD BASIC METABOLIC PANEL Routine 05/12/2018 5:51 AM SALES LEAD HC COMPLETE BLD COUNT Routine 05/12/2018 W/AUTO DIFF 5:51 AM SALES LEAD POC GLUCOSE Routine 05/12/2018 5:42 AM SALES LEAD POC GLUCOSE Routine 05/11/2018 9:00 PM SALES LEAD POC GLUCOSE Routine 05/11/2018 4:23 PM SALES LEAD POC GLUCOSE Routine 05/11/2018 11:07 AM SALES LEAD HC COMPLETE BLD COUNT Routine 05/11/2018 W/AUTO DIFF 6:15 AM SALES LEAD POC GLUCOSE Routine 05/11/2018 6:10 AM SALES LEAD POC GLUCOSE Routine 05/10/2018 8:29 PM SALES LEAD POC GLUCOSE Routine 05/10/2018 3:57 PM SALES LEAD POC GLUCOSE Routine 05/10/2018 11:14 AM SALES LEAD POC GLUCOSE Routine 05/10/2018 5:38 AM SALES LEAD ESTIMATED GFR Routine 05/10/2018 5:30 AM SALES LEAD HC COMPLETE BLD COUNT Routine 05/10/2018 W/AUTO DIFF 5:30 AM SALES LEAD BASIC METABOLIC PANEL Routine 05/10/2018 5:30 AM SALES LEAD CLOSTRIDIUM DIFFICILE Routine 05/10/2018 TOXIN 12:14 AM SALES LEAD POC GLUCOSE Routine 05/09/2018 8:05 PM SALES LEAD POC GLUCOSE Routine 05/09/2018 5:16 PM SALES LEAD POC GLUCOSE Routine 05/09/2018 12:26 PM SALES LEAD LACTIC ACID LEVEL, SEPSIS Timed 05/09/2018 - NOW AND REPEAT 2X EVERY 6:38 AM SALES LEAD 3 HOURS POC GLUCOSE Routine 05/09/2018 6:27 AM SALES LEAD LACTIC ACID LEVEL, SEPSIS Timed 05/09/2018 - NOW AND REPEAT 2X EVERY 4:33 AM SALES LEAD [address] ABDOMEN PELVIS W STAT 05/09/2018 CONTRAST 12:05 AM SALES LEAD GRAM STAIN STAT 05/08/2018 11:40 PM SALES LEAD URINE CULTURE STAT 05/08/2018 11:40 PM SALES LEAD ESTIMATED GFR STAT 05/08/2018 11:15 PM SALES LEAD TROPONIN STAT 05/08/2018 11:15 PM SALES LEAD CREATINE KINASE, TOTAL STAT 05/08/2018 (CPK) 11:15 PM SALES LEAD LIPASE LEVEL STAT 05/08/2018 11:15 PM SALES LEAD LACTIC ACID LEVEL, SEPSIS STAT 05/08/2018 - NOW AND REPEAT 2X EVERY 11:15 PM SALES LEAD 3 HOURS COMPREHENSIVE METABOLIC STAT 05/08/2018 PANEL 11:15 PM SALES LEAD URINALYSIS SCREEN AND STAT 05/08/2018 MICROSCOPY, WITH REFLEX 11:15 PM SALES LEAD TO CULTURE PARTIAL THROMBOPLASTIN STAT 05/08/2018 TIME (PTT) 11:15 PM SALES LEAD PROTHROMBIN TIME WITH INR STAT 05/08/2018 11:15 PM SALES LEAD HC COMPLETE BLD COUNT STAT 05/08/2018 W/AUTO DIFF 11:15 PM SALES LEAD ECG ED PRELIMINARY Routine 05/08/2018 INTERPRETATION 11:00 PM SALES LEAD XR CHEST 1 VW PORTABLE STAT 05/08/2018 10:55 PM SALES LEAD ECG 12-LEAD STAT 05/08/2018 10:49 PM SALES LEAD after 10/15/2017 Results * POC glucose (05/12/2018 11:21 AM SALES LEAD) Only the most recent of 14 results within the time period is included. [facility] POC glucose 135 (H) 65 - 99 mg/dL [facility] Comment: [facility] Meter ID: [id number] [facility] Route Delivery Supervisor: Herman Larsen Specimen Performing Organization Address City/State/Zipcode [place] [address] [place] [address] PATHOLOGY AND GENOMIC MEDICINE [place] [address] [place] [address] [facility] * Estimated GFR (05/12/2018 5:51 AM SALES LEAD) Only the most recent of 3 results within the time period is included. [facility] Estimated GFR >=90 mL/min/1.73 m2 [place] Comment: [facility] rpretation G1 >=90 Normal or high G2 60-89Mildly decreased [id number] Mildly to moderately decreased V5s20-73 Moderately to severely decreased G4 15-29Severely decreased G5 <15Kidney failure The eGFR was calculated using the Chronic Kidney Disease Epidemiology Collaboration (CKD-EPI) equation. Interpretation is based on recommendations of the National Kidney Foundation-Kidney Disease Outcomes Quality Initiative (NKF-KDOQI) published in 2014. Specimen Plasma specimen Performing Organization Address City/State/Zipcode [place] [address] [place] [address] PATHOLOGY AND GENOMIC MEDICINE [facility] [address] [place] [address] [facility] * CBC with platelet and differential (05/12/2018 5:51 AM SALES LEAD) Only the most recent of 4 results within the time period is included. WBC 12.69 (H) 4.50 - 11.00 k/uL [facility] RBC 4.90 4.20 - 5.50 m/uL [facility] HGB 13.8 12.0 - 16.0 g/dL [facility] HCT 42.4 37.0 - 47.0 % [facility] MCV 86.5 82.0 - 100.0 fL [facility] MCH 28.2 27.0 - 34.0 pg [facility] MCHC 32.5 31.0 - 37.0 g/dL [facility] RDW - SD 37.2 37.0 - 55.0 fL [facility] MPV 9.5 8.8 - 13.2 fL [facility] Platelet count 493 (H) 150 - 400 k/uL [facility] Nucleated RBC 0.00 /100 WBC [facility] Neutrophils 63.6 39.0 - 69.0 % [facility] Lymphocytes 22.9 (L) 25.0 - 45.0 % [facility] Monocytes 11.0 (H) 0.0 - 10.0 % [facility] Eosinophils 1.3 0.0 - 5.0 % [facility] Basophils 0.6 0.0 - 1.0 % [facility] Specimen Blood Performing Organization Address [facility] Phone Number [address] [place] [address] PATHOLOGY AND GENOMIC MEDICINE [address] * Basic metabolic panel (05/12/2018 5:51 AM SALES LEAD) Only the most recent of 2 results within the time period is included. [facility] Sodium 135 135 - 148 mEq/L [facility] Potassium 3.9 3.5 - 5.0 mEq/L [facility] Chloride 96 (L) 98 - 112 mEq/L [facility] CO2 25 24 - 31 mEq/L [facility] Anion gap 14@ANIO 7 - 15 mEq/L [facility] BUN 9 8 - 23 mg/dL [facility] Creatinine 0.50 0.50 - 0.90 mg/dL [facility] Glucose 143 (H) 65 - 99 mg/dL [facility] Calcium 8.9 8.8 - 10.2 mg/dL [facility] Specimen Plasma specimen Performing Organization Address [facility] Phone Number [address] [place] [address] PATHOLOGY AND [facility] MEDICINE [address] * C difficile toxin (05/10/2018 12:14 AM SALES LEAD) [facility] Clostridium No Clostridium difficle toxin [facility] difficile toxin present [facility] Comment: HOSPITAL Specimen Information Specimen Source: Stool Specimen Site: Nonpreserved Specimen Stool - Nonpreserved Performing Organization Address City/[facility]/Zipcode Phone Number [facility] [place] [address] PATH[address] * Lactic acid level, SEPSIS - Now and repeat 2x every 3 hours (05/09/2018 6:38 AM SALES LEAD) Only the most recent of 3 results within the time period is included. [facility] Lactic acid 1.4 0.5 - 2.2 mmol/L [facility] Specimen Plasma specimen Performing Organization Address City/State/Zipcode [place] Number [place] [address] [place] [address] PATHOLOGY AND GENOMIC MEDICINE [facility] [address] [place] [address] [facility] * CT Abdomen Pelvis W Contrast (05/09/2018 12:05 AM SALES LEAD) Specimen Narrative Performed At CT ABDOMEN PELVIS [...] point located in the left lower quadrant. [facility]-[id number] Procedure Note Interface, Radiology Results Incoming - 05/09/2018 12:[address] ABDOMEN PELVIS W CONTRAST CLINICAL INDICATION: [...] point located in the left lower quadrant. [facility]-[id number] Performing Organization Address City/[facility]/Zipcode Phone Number [facility] [address] [place] [address] * Gram stain (05/08/2018 11:40 PM SALES LEAD) Gram stain No WBC's or organisms seen. [facility] result Comment: [facility] Specimen Information HOSPITAL Specimen Source: Urine Specimen Site: Clean catch Specimen Urine Performing Organization Address City/[facility]/Zipcode Phone Number [facility] DEPARTMENT [address] [address] PATHOLOGY AND GENOMIC MEDICINE [place] [facility] * Urine culture (05/08/2018 11:40 PM SALES LEAD) Urine culture Klebsiella pneumoniae [facility] isolate >10-5 cfu/ml [facility] The performance HOSPITAL characteristics of this assay on this isolate were validated by the Microbiology Laboratory at [facility].This source has not been approved by the [...] culture Escherichia coli [facility] isolate >10-5 cfu/ml [facility] Specimen Urine Antibiotic Method Susceptibility [...] coli Performing Organization Address City/State/Zipcode Phone Number [facility] DEPARTMENT OF [address] [place] [address] PATHOLOGY AND GENOMIC MEDICINE [address] * Urinalysis screen and microscopy, with reflex to culture (05/08/2018 11:15 PM SALES LEAD) Specimen site Clean catch [facility] Color, UA Yellow [facility] Appearance, UA Slightly-Cloudy [facility] Specific 1.026 1.001 - 1.035 [place] gravity, UA [facility] pH, UA 5.0 5.0 - 8.5 [facility] Protein, UA 1+ (A) Negative [facility] Glucose, UA Negative Negative [facility] Ketones, UA 1+ (A) Negative [facility] Bilirubin, UA Negative Negative [facility] Blood, UA Large (A) Negative [facility] Nitrite, UA Negative Negative [facility] Urobilinogen, Negative <2.0 [facility] Leukocyte Trace (A) Negative [facility] esterase, UA [facility] Epithelial Many /HPF [facility] cells, UA [facility] Round Few 0 - 1 /HPF [facility] epithelial [facility] ST. cells, [facility] WBC, UA 11-20 (H) 0 - 4 /HPF [facility] RBC, UA 61-80 (H) 0 - 5 /HPF [facility] Bacteria, UA Trace None seen [facility] Yeast, UA None seen [facility] Yeast with None seen [facility] Specimen Urine Performing Organization Address City/[facility] Services[facility] Phone Number [address] [place] [address] PATHOLOGY AND GENOMIC MEDICINE [address] * Troponin (05/08/2018 11:15 PM SALES LEAD) [facility] Troponin <0.300 0.000 - 0.300 ng/mL [facility] Comment: [facility] 0.30 - 1.49 [facility] ng/mlMay indicate increased risk of acute coronary syndrome. >=1.5 ng/ml Consistent with acute myocardial infarction. The diagnostic value of a single normal or non-diagnostic result is questionable.Serial samples at 2-6 hour intervals are required to rule out acute myocardial injury. Specimen Plasma specimen Performing Organization Address [facility] Services[facility] Phone Number [address] [place] [address] PATHOLOGY AND GENOMIC MEDICINE [address] * Partial thromboplastin time, activated (05/08/2018 11:15 PM SALES LEAD) [facility] PTT 38.2 (H) 23.0 - 36.0 sec [facility] Comment: [facility] [place] PTT therapeutic range for [facility] unfractionated heparin is 61.0-112.0 seconds which corresponds to Anti-Xa 0.3-0.7 U/ml. Specimen Blood Performing Organization Address [facility] Phone Number [address] [place] [address] PATHOLOGY [address] * Prothrombin time with INR (05/08/2018 11:15 PM SALES LEAD) Prothrombin 14.1 11.5 - 14.5 sec [facility] INR 1.1 [place] Comment: [facility] [place] The International Normalized [facility] Ratio (INR) is a therapeutic monitoring tool for patients who are stable on oral anticoagulant therapy. An INR of 2.0-3.0 is suggested for deep vein thrombosis/pulmonary embolism. Specimen Blood Performing Organization Address [facility] Phone Number [address] [place] [address] PATHOLOGY [address] * Lipase level (05/08/2018 11:15 PM SALES LEAD) Pathologist [facility] Lipase 12 (L) 13 - 60 U/L [facility] Specimen Plasma specimen Performing Organization Address [facility] Phone Number [address] [place] [address] PATHOLOGY AND [address] * Creatine kinase, total (CPK) (05/08/2018 11:15 PM SALES LEAD) Creatine kinase 50 26 - 192 U/L [facility] Specimen Plasma specimen Performing Organization Address [facility] Phone Number [address] [place] [address] PATHOLOGY [address] * Comprehensive metabolic panel (05/08/2018 11:15 PM SALES LEAD) Sodium 132 (L) 135 - 148 mEq/L [facility] Potassium 3.7 3.5 - 5.0 mEq/L [facility] Chloride 93 (L) 98 - 112 mEq/L [facility] CO2 26 24 - 31 mEq/L [facility] Anion gap 13@ANIO 7 - 15 mEq/L [facility] BUN 29 (H) 8 - 23 mg/dL [facility] Creatinine 0.70 0.50 - 0.90 mg/dL [facility] Glucose 229 (H) 65 - 99 mg/dL [facility] Calcium 9.2 8.8 - 10.2 mg/dL [facility] Protein 9.1 (H) 6.3 - 8.3 g/dL [place] Comment: [facility] 4.6-7.0 g/dL 1 week 4.4-7.6 g/dL 7 months-1year 5.1-7.3 g/dL 1-2 years5.6-7 .5 g/dL >3 years6.0-8 .0 g/dL 18-150 6.3-8.3 g/dL Albumin 4.1 3.5 - 5.0 g/dL [facility] A/G ratio 0.8 0.7 - 3.8 [facility] Alkaline 91 35 - 104 U/L [place] phosphatase [facility] AST 17 10 - 35 U/L [facility] ALT 13 5 - 50 U/L [facility] Total bilirubin 0.5 0.0 - 1.2 mg/dL [facility] Specimen Plasma specimen Performing Organization Address City/State/Zipcode Phone Number [facility] [id number] [place] [address] [place] [address] PATHOLOGY AND GENOMIC MEDICINE [facility] [id number] [place] [address] * ECG ED Preliminary Interpretation - Not an Order (05/08/2018 11:00 PM SALES LEAD) Narrative Performed At Peggy Smart NP-C 05/09/2018 11:56 AM ECG ED Preliminary Interpretation - Not an Order Performed by: Peggy Smart NP-C Authorized by: Brandon Oakes MD ECG reviewed by ED Physician in the absence of a filter tank tender helper: yes Previous ECG: Previous ECG:Unavailable Interpretation: Interpretation: abnormal Rate: ECG rate:97 ECG rate assessment: normal Rhythm: Rhythm: sinus rhythm Ectopy: Ectopy: PVCs PVCs:Infrequent QRS: QRS axis:Normal Conduction: Conduction: normal ST segments: ST segments:Non-specific T waves: T waves: non-specific * XR Chest 1 Vw Portable (05/08/2018 10:55 PM SALES LEAD) Specimen Narrative Performed At EXAMINATION:XR CHEST 1 VW PORTABLE [facility] CLINICAL HISTORY:abd pain COMPARISON:To previous study from 03/10/2012 IMPRESSION: Clips are present projected over the right chest. The heart is normal in appearance, and the lungs are clear. [facility]-[id number] Procedure Note Hm Interface, Radiology Results Incoming - 05/08/2018 11:01 PM SALES LEAD EXAMINATION: XR CHEST 1 VW PORTABLE CLINICAL HISTORY: abd pain COMPARISON: To previous study from 03/10/2012 IMPRESSION: Clips are present projected over the right chest. The heart is normal in appearance, and the lungs are clear. [facility]-[id number] Performing Organization Address City/[facility] Phone Number [facility] [address] [place] [address] * ECG 12 lead (05/08/2018 10:49 PM SALES LEAD) Ventricular 97 [facility] rate Atrial rate 97 [facility] [place] interval 126 [facility] QRSD interval 74 [...] Specimen Narrative Performed At Performing Organization Address City/[facility] Services[facility] Phone Number [facility] [address] [place] [address] after 10/15/2017 Insurance Type Payer Benefit Subscriber ID Effective Phone Address Plan / Dates Group Medicaid PENDING MEDICAID PENDING xxxxxxxxx 2018- [address] MEDICAID Present [id number] [place] [address] Medicare MEDICARE MEDICARE xxxxxxxxxxx 2017-P JARED, PART A AND resent [place] B Advance Directives Patient has advance care planning documents on file. For more information, queenie carrillo contact: Jared Saleh [address] [place] [address]
[2018-10-16] MEDS: METRONIDAZOLE 500MG/NS 100ML 100 ML IV SCH (18:58)
[2018-10-16 20:30] VITALS: BP 160/73
[2018-10-16] MEDS: ONDANSETRON HCL INJ 2MG/ML 2ML 2 MG/ML VIAL IV PRN (23:30)
[2018-10-16] MEDS: MORPHINE SULFATE INJ 4 MG/ML INJ 1ML IV PRN (23:30)
[2018-10-17] VITALS (9 sets, daily range): BP systolic 113–160; BP diastolic 57–73
--- NOTE | 2018-10-17 00:17 | NUR ---
PT IS TRANSFERRED FROM ER .PT IS AOX3 .RESPIRATIONS ARE EVEN AND UNLABORED .SKIN WARM AND DRY TO TOUCH .C./O ABDOMINAL PAIN .NOTIFIED .DR COFFEY GIVEN THE ORDER FOR MORPHINE.CALLED DOCTOR NINA AND NOTIFIED ABOUT THE PT .DOCTOR NINA AWARE OF THE PT .NOTIFIED DR COFFEY THAT DOCTOR NINA CALLED ABOUT THE PT .PT IS NPO CALL LIGHT WITH IN REACH .CONTINUE TO MONITOR
[2018-10-17] MEDS: ONDANSETRON HCL INJ 2MG/ML 2ML 2 MG/ML VIAL IV PRN ×5 (03:30→22:19)
[2018-10-17] MEDS: MORPHINE SULFATE INJ 4 MG/ML INJ 1ML IV PRN ×3 (03:30→12:22)
[2018-10-17] MEDS: PIPER-TAZ 3.375 GM 50 ML IV SCH ×4 (06:00→17:29)
[2018-10-17] MEDS: METRONIDAZOLE 500MG/NS 100ML 100 ML IV SCH ×2 (06:00)
[2018-10-17 06:03] LABS: BASOPHILS # (AUTO) 0.1 (0.0-0.1); BASOPHILS % 0.8 % (0.0-1.0); EOSINOPHILS # (AUTO) 0.5 (0.0-0.4); EOSINOPHILS % 2.9 % (0.0-6.0); HEMATOCRIT 40.6 % (34.2-44.1); HEMOGLOBIN 13.6 g/dL (12.0-16.0); LYMPHOCYTES % 32.3 % (18.0-39.1); MEAN CORPUSCULAR HEMOGLOBIN 29.4 pg (28-32); MEAN CORPUSCULAR HGB CONC 33.5 g/dL (31-35); MEAN CORPUSCULAR VOLUME 87.7 fL (81-99); MONOCYTES # (AUTO) 1.5 (0.2-0.8); MONOCYTES % 9.8 % (4.4-11.3); NEUTROPHILS # (AUTO) 8.4 (2.1-6.9); NEUTROPHILS % 53.8 % (38.7-80.0); PLATELET COUNT 525 x10e3/uL (140-360); RED BLOOD COUNT 4.63 x10e6/uL (3.6-5.1); RED CELL DISTRIBUTION WIDTH 13.3 % (11.7-14.4)
--- NOTE | 2018-10-17 06:11 | NUR ---
PT RESTING AND C/O PAIN .GIVEN ORDERED PAIN MEDICATION. PT DID NOT BRING THE HOMEDICATION LIST TO RECONCILE MEDIATION .PT SAID TO BRING IN THE MORNING .CALL LIGHT WITH IN REACH ,CONTINUE TO MONITOR
[2018-10-17 06:32] LABS: ALANINE AMINOTRANSFERASE 13 IU/L (0-55); ALBUMIN 2.9 g/dL (3.5-5.0); ALBUMIN/GLOBULIN RATIO 0.7 (0.8-2.0); ALKALINE PHOSPHATASE 74 IU/L (40-150); ANION GAP 13.9 mmol/L (8-16); BLOOD UREA NITROGEN 12 mg/dL (7-26); BUN/CREATININE RATIO 17 (6-25); CALCIUM 8.6 mg/dL (8.4-10.2); CARBON DIOXIDE 24 mmol/L (22-29); CHLORIDE 104 mmol/L (98-107); CREATININE, SERUM 0.69 mg/dL (0.57-1.11); EST GLOMERULAR FILTRATION RATE > 60 ML/MIN (60-); GLUCOSE 108 mg/dL (74-118); POTASSIUM 3.9 mmol/L (3.5-5.1); SODIUM 138 mmol/L (136-145)
[2018-10-17] MEDS: SODIUM CHLORIDE 0.9% 1000ML 1,000 ML IV SCH (06:49)
--- NOTE | 2018-10-17 07:22 | NUR ---
BEDSIDE REPORT GIVEN TO THE ONCOMING NURSE
[2018-10-17] MEDS: INSULIN LISPRO 100 UNIT/1 ML 3ML VIAL SQ SCH ×4 (07:30→21:00)
[2018-10-17] MEDS ORDERED: DEXTROSE 50% SYRINGE 50 ML IV PRN (07:30)
[2018-10-17] MEDS ORDERED: FLAGYL500 MG (07:33)
[2018-10-17] MEDS ORDERED: CIPRO500 MG PO (07:33)
[2018-10-17] MEDS ORDERED: HUMULIN 70100 UNIT/1 (07:33)
--- NOTE | 2018-10-17 07:40 | NUR ---
PATIENT IS AWAKE, ALERT, AND IN STABLE CONDITION WITH NO S/S OF RESPIRATORY DISTRESS. PATIENT C/O LLQ PAIN 8/10- PAIN MEDICATION WILL BE AVAILABLE SOON. IV FLUIDS INFUSING. CALL LIGHT IS WITHIN REACH, PATIENT INSTRUCTED TO CALL FOR ASSISTANCE NEEDED.
[2018-10-17 09:38] LABS: EOSINOPHILS % (MANUAL) 3 % (0-7); LYMPHOCYTES % (MANUAL) 29 % (19-48); MONOCYTES % (MANUAL) 7 % (3.4-9.0); NEUTROPHILS % (MANUAL) 60 % (40-74)
[2018-10-17 09:42] LABS: PLATELET ESTIMATE MODERATELY INCREASED; PLATELET MORPHOLOGY COMMENT NORMAL; RBC MORPHOLOGY COMMENT NORMAL
--- NOTE | 2018-10-17 09:49 | NUR ---
PATIENT AMBULATING IN THE HALLWAY
[2018-10-17] MEDS: DEXTROSE 5%/0.9% SOD CHL 1,000 ML IV SCH ×2 (12:26→21:45)
--- NOTE | 2018-10-17 13:57 | History and Physical ---
CHIEF COMPLAINT: Abdominal pain in left lower quadrant. HISTORY OF PRESENT ILLNESS: This is a 68-year-old female with known history of diverticulitis in the past with diverticular abscesses, who came into the ED with complaints of abdominal pain in the left lower quadrant, found to have a diverticular abscess and questionable sigmoid perforation requiring IV antibiotic therapy and General Surgery consultation. The patient apparently has had a diverticular abscess in the past back in 2016 at [facility]. At that time, the patient, according to her, had a drain likely placed by IR, started on broad-spectrum antibiotics and she improved tremendously and was discharged to home. The patient's last episode occurred three years later approximately in April of this year, 2018, in which she was treated accordingly with antibiotics and discharged home. She now reports worsening abdominal pain in the left lower quadrant ongoing for the last several days. Endorses decreased oral intake and subjective fever with associated possibly nausea and vomiting. The patient was seen and evaluated at bedside on the medical floor. She is currently stable, doing well, alert and oriented x4, vital signs stable during my evaluation. She verbalized understanding with my plan of care. General Surgery and ID have been consulted. REVIEW OF SYSTEMS: Pertinent positives: Left lower quadrant abdominal pain, decreased oral intake, nausea. Pertinent negatives: Denies any chest pain, palpitation, vomiting, dysuria, hematuria, frequency, urgency, lightheadedness, dizziness, cough, congestion, fever, or any other complaints. The rest of 14-point review of systems have been reviewed with the patient and are negative. ALLERGIES: NO KNOWN DRUG ALLERGIES. HOME MEDICATIONS: NPH 70/30 and she was apparently on Cipro and Flagyl. PAST MEDICAL HISTORY: She has a history of a diverticular abscess back in 2016 performed at [facility], improved on IV antibiotics as an outpatient; type 2 diabetes. Also endorses having diverticulitis back in April of this year that resolved on medications. PAST SURGICAL HISTORY: She reports none. FAMILY HISTORY: Hypertension and diabetes. SOCIAL HISTORY: No drugs. No alcohol. Does not smoke. Good social support. PHYSICAL EXAMINATION: VITAL SIGNS: Temperature is 97, pulse 82, respiratory rate is 19, blood pressure 145/62, pulse ox is 96% on room air. GENERAL: Not in acute distress. Alert and oriented x3. Cooperative on examination. HEENT: Head is normocephalic and atraumatic. Eyes; pupils are equal, round, and reactive to light bilaterally. Extraocular movements are intact bilaterally. Throat, no evidence of erythema or exudates in the posterior pharynx. Has poor dentition. NECK: Supple. Good range of motion. PULMONARY: Clear to auscultation bilaterally. No wheezing, no rales, no rhonchi, no crackles appreciated. CARDIOVASCULAR: Positive S1, S2. No murmurs, rubs, or gallops appreciated. ABDOMEN: She is tender to palpation in the left lower quadrant. She is soft. Bowel sounds are present. MUSCULOSKELETAL: Strength is 5/5 throughout. No evidence of any muscle deficits on examination. No weakness appreciated. NEUROLOGICAL: Cranial nerves 2 through 12 grossly intact. No evidence of any neurological deficits on exam. SKIN: Intact. Warm to touch. Good cap refill. PSYCHIATRIC: Normal affect and mood. EXTREMITIES: No edema. Good range of motion throughout. LABORATORY DATA: Lab findings show white count 15.5, hemoglobin 13.6, hematocrit is 41, platelets of 525. On admission, white count was 22. Chemistry; sodium 138, potassium 3.9, chloride 104, bicarbonate is 24, anion gap of 13, BUN is 12, creatinine is 0.69, glucose is 108. Lactic acid on admission was 22 then downtrended to 6.8. calcium 8.6. Total bilirubin is 0.2, AST 15, ALT 13, albumin 2.9, lactate is 18, amylase 34. Urinalysis is concerning for underlying urinary tract infection, but the urine culture is not sent. MICROBIOLOGY: Blood cultures x2 are pending. IMAGING STUDIES: CT abdomen and pelvis with IV contrast shows perforated sigmoid diverticulitis with associated 5.6 x 4.1 cm diverticular abscess seen. Hepatic steatosis. Right adrenal 1.1 cm nodule is indeterminate on single phase CT scan. We need to recommend followup in one year with a mass protocol CT to assess for stability. Discussed with the patient about followup accordingly as an outpatient and she verbalized understanding and will do so accordingly with her PCP. IMPRESSION: 1. Perforated sigmoid diverticulitis with a diverticular abscess. 2. Leukocytosis secondary to perforated sigmoid diverticulitis. 3. Abdominal pain with nausea, vomiting, decreased oral intake. 4. Type 2 diabetes. PLAN: At this time, General Surgery has been consulted to come, evaluate and treat and see what the next plan of care is on this patient. She will be on IV antibiotic, antinausea medication, pain control, continue with n.p.o., on IV fluids for now. I will go ahead and get Cardiology for cardiac clearance in the event she needs surgical intervention. At this time, we will also get a 2D echo. I will also go ahead and get an ID consultation. The patient is on IV Zosyn as well. I am going to ahead and resume all her home medications, but with just small sips of water if needed for her home medications. Hold anticoagulation in the event the patient needs surgery. We will continue to follow with the consultants. Appreciate all consultants recommendations on this case. The patient is very stable during my examination, vitals were stable as well and she is with no issues at this time. MD MARJORIE Gaffney/EVA /[id number]
--- NOTE | 2018-10-17 14:26 | NUR ---
CALL PLACED OUT TO DR. NINA FOR RADIOLOGY TO INFORM DR. NINA THE IR CONSULT ORDER WILL BE DONE TOMORROW, 10/18/18- AWAITING CALLBACK.
--- NOTE | 2018-10-17 14:27 | Consultation ---
DATE OF CONSULTATION: 10/17/2018 REASON FOR CONSULTATION: Preoperative cardiovascular evaluation. HISTORY OF PRESENT ILLNESS: Ms. Bates is a 68-year-old lady with history of type 2 diabetes diagnosed in 2016, hepatitis C, recurrent diverticulitis, comes in after her 3rd flare and failed outpatient therapy. Her most recent flare began on October 07, 2018, and she went to her PCP. She was re-diagnosed with diverticulitis and started on outpatient Cipro and Flagyl along with Tylenol No. 3 p.r.n. for pain. Her pain progressed and came into her PCPs for re-evaluation several days ago and appeared to have failed outpatient therapy. She reported low-grade fevers, sweats, malaise, and progression in left lower quadrant abdominal pain. Upon arrival here, a CT abdomen and pelvis was performed, which showed a 5.6 x 4.1 cm diverticular abscess with perforated sigmoid diverticulitis. The patient is referred to Cardiology for preoperative clearance prior to sigmoid colectomy operation. The patient reports history of 3 major operations in her past. She had a laparoscopic operation of abdomen back in 1977 under general anesthesia followed by 2011 lung surgery under general anesthesia and in 2015 another operation, GI surgery. She denies having any issues with prior anesthesia. The patient denies any chest pain or discomfort. She endorses she can climb two flights of stairs without any cardiopulmonary complaints. She endorses greater than 4 METs of activity at baseline. In terms of cardiac risk factors, the patient does smoke and smokes half a pack per day, started in her teens and is precontemplative quitting. The patient denies any prior cardiac history. PAST MEDICAL HISTORY: 1. Hepatitis C. 2. Type 2 diabetes, diagnosed in 2016. 3. History of recurrent diverticulitis x3. 4. History of urinary tract infections. 5. Presumably chronic obstructive pulmonary disease from smoking. PAST SURGICAL HISTORY: 1. In 1977, had laparoscopic endometriosis surgery. 2. In 2011, had right lung surgery to remove foreign object. 3. In 2015, the patient had abdominal surgery with sigmoid operation. FAMILY HISTORY: Mother at 84, from renal failure, had diabetes. Father at age of at 89, from renal issues, complicating a heart attack. SOCIAL HISTORY: She is a half [id number] smoker. Denies any alcohol or illicit drug use. She is retired. ALLERGIES: NO KNOWN DRUG ALLERGIES. HOME MEDICATIONS: Included: 1. Cipro 500 mg b.i.d. 2. Flagyl 500 mg daily. 3. Insulin 70/30, 20 units subcu b.i.d. REVIEW OF SYSTEMS: GENERAL: Positive for fatigue, malaise, chills, sweats, and low-grade fevers. HEENT: No headaches, visual complaints, sore throat, or stuffy nose. RESPIRATORY: Denies any pleuritic chest pain, cough, or wheezing. CARDIOVASCULAR: As per HPI. GI: Positive for abdominal pain and loose stools. Diverticulitis is per above. : Denies any dysuria, pyuria, or change in urinary frequency. MUSCULOSKELETAL: Has some lower back pain. No leg swelling. No edema. ENDOCRINE: Denies any heat or cold intolerance. Positive for diabetes. NEUROLOGIC: Denies any focal weakness, numbness, tingling, seizures, headache, transient ischemic attack, or stroke. SKIN: No rashes. Remainder of review of systems negative, otherwise as mentioned. PHYSICAL EXAMINATION: VITAL SIGNS: Height of 64 inches, weight of 142 pounds, BMI is 24.4, temperature of 97.0, pulse of 82, respiratory rate 18, blood pressure 113/57, and O2 saturation 95% on room air. GENERAL: This is a well-nourished, well-developed lady, who is currently in mild pain related to her diverticulitis. HEENT: Normocephalic, atraumatic. Pupils are equal, round, and reactive to light. Extraocular movements are intact. Oropharynx is clear. NECK: No elevation of jugular venous pulsation. No carotid bruits. CARDIOVASCULAR: Regular rate and rhythm. Normal S1, S2. Soft 1/6 systolic murmur at left lower sternal border. LUNGS: Show mildly decreased air flow throughout lung ortega and diminished air entry, compatible with COPD type changes. ABDOMEN: Soft with normoactive bowel sounds. There is discomfort to palpation in the left lower quadrant region. BACK: No costovertebral angle tenderness. EXTREMITIES: Warm with 2+ bilateral radial pulses, 1 to 2+ bilateral femoral pulses, 1+ pedal pulses. NEUROLOGIC: Cranial nerves II through XII are intact. Strength 5/5. Grossly nonfocal. PSYCH: Normal fluent speech. Appropriate affect. No anxiety or delusions. LABORATORY DATA: White count is 15.6 with hemoglobin 13.6, hematocrit 40.6, and platelets of 525. Sodium 138, potassium 3.9, chloride 104, bicarb 24, BUN 12, creatinine 0.69, glucose of 108, calcium of 8.6, AST 15, ALT 13, alkaline phosphatase 74, total protein 7.3, albumin of 2.9. UA shows 21 to 50 white cells. Abdomen and pelvis CT is significant for right adrenal 1.1 cm nodule, hepatic steatosis, and the presence of diverticular abscess with a perforated sigmoid colon abscess 5.6 x 4.1 cm. DIAGNOSES: 1. Sepsis, secondary to perforated diverticulitis complicated by the presence of abscess formation. 2. Preoperative cardiovascular risk evaluation. 3. Chronic obstructive pulmonary disease, smoker. 4. History of hepatitis C. RECOMMENDATIONS: 1. From a cardiovascular standpoint, we had a long discussion in terms of cardiac risks associated with GI surgery. The patient is at least moderate cardiac risk, however, seems to be reasonable to proceed. The patient is accepting her clinical situation and the operation seems for now to be urgent. For this reason, we are going to go ahead and check echocardiogram to evaluate her left ventricular function, have an EKG present on the chart and we will manage expectantly should any cardiac issues arise. 2. Advised to quit smoking. 3. Aggressive risk factor modification medical therapy. 4. Agree with broad-spectrum antibiotics to cover GI sources. 5. We will continue to follow this patient with you. Thank you for this referral. MD JOEY Valentino/EVA /[id number]
--- NOTE | 2018-10-17 15:13 | NUR ---
PT DISCUSSED IN BARRIER ROUNDS; PT ON ABX, FLUIDS, PAIN MEDICATIONS, NPO FOR DR NINA FOR POSSIBLE PERF, PROJECTED DISCHARGE IS 25TH.
[2018-10-17 17:15] LABS: INR 1.08; PROTHROMBIN TIME 14.5 seconds (11.9-14.5)
[2018-10-17 17:16] LABS: PARTIAL THROMBOPLASTIN TIME 38.4 seconds (23.8-35.5)
[2018-10-17] MEDS: HYDROMORPHONE 1MG/1ML INJ IV PRN ×2 (17:29→22:19)
--- NOTE | 2018-10-17 19:32 | NUR ---
PATIENT IN STABLE CONDITION WITH NO S/S OF RESPIRATORY DISTRESS. NO PAIN VOICED AT THIS TIME- IV DILAUDID WAS GIVEN TO THE PATIENT. IV FLUIDS INFUSING. BED ALARM ON. CALL LIGHT IS WITHIN REACH, PATIENT INSTRUCTED TO CALL FOR ASSISTANCE NEEDED. PATIENT WILL BE NPO THIS EVENING FOR IR CONSULT TOMORROW, 10/18/18. BEDSIDE REPORT GIVEN TO ONCOMING NURSE.
--- NOTE | 2018-10-17 19:46 | NUR ---
RECEIVED PT IN BED AOX3 .DENIES PAIN AT THIS TIME .HELPED THE PT TO HE RESTROOM .CALL LIGHT WITH IN REACH .CONTINUE TO MONITOR
[2018-10-18] VITALS (8 sets, daily range): BP systolic 136–170; BP diastolic 65–80
[2018-10-18] MEDS: HYDROMORPHONE 1MG/1ML INJ IV PRN ×4 (03:28→21:25)
[2018-10-18 06:28] LABS: ALANINE AMINOTRANSFERASE 13 IU/L (0-55); ALBUMIN 2.9 g/dL (3.5-5.0); ALBUMIN/GLOBULIN RATIO 0.7 (0.8-2.0); ALKALINE PHOSPHATASE 65 IU/L (40-150); BLOOD UREA NITROGEN 7 mg/dL (7-26); BUN/CREATININE RATIO 11 (6-25); CALCIUM 8.6 mg/dL (8.4-10.2); CARBON DIOXIDE 23 mmol/L (22-29); CHLORIDE 103 mmol/L (98-107); CREATININE, SERUM 0.65 mg/dL (0.57-1.11); EST GLOMERULAR FILTRATION RATE > 60 ML/MIN (60-); GLUCOSE 149 mg/dL (74-118); SODIUM 134 mmol/L (136-145)
[2018-10-18] MEDS: PIPER-TAZ 3.375 GM 50 ML IV SCH ×4 (06:34→18:55)
[2018-10-18 06:43] LABS: HEMATOCRIT 39.7 % (34.2-44.1); HEMOGLOBIN 13.3 g/dL (12.0-16.0); MEAN CORPUSCULAR HEMOGLOBIN 29.3 pg (28-32); MEAN CORPUSCULAR HGB CONC 33.5 g/dL (31-35); MEAN CORPUSCULAR VOLUME 87.4 fL (81-99); PLATELET COUNT 499 x10e3/uL (140-360); RED BLOOD COUNT 4.54 x10e6/uL (3.6-5.1)
--- NOTE | 2018-10-18 07:25 | NUR ---
pt up in room c/o pain to aBD 6,
[2018-10-18] MEDS: INSULIN LISPRO 100 UNIT/1 ML 3ML VIAL SQ SCH ×4 (07:30→21:00)
[2018-10-18] MEDS: ONDANSETRON HCL INJ 2MG/ML 2ML 2 MG/ML VIAL IV PRN ×3 (07:45→21:25)
--- NOTE | 2018-10-18 08:00 | NUR ---
PAIN LEVEL 6 TO ABD MEDICATED
[2018-10-18 08:07] LABS: EOSINOPHILS % (MANUAL) 5 % (0-7); LYMPHOCYTES % (MANUAL) 28 % (19-48); MONOCYTES % (MANUAL) 7 % (3.4-9.0); NEUTROPHILS % (MANUAL) 60 % (40-74)
[2018-10-18 08:08] LABS: PLATELET ESTIMATE ADEQUATE; PLATELET MORPHOLOGY COMMENT NORMAL; RBC MORPHOLOGY COMMENT NORMAL
[2018-10-18] MEDS ORDERED: MIDAZOLAM HCL 2 MG/2 ML VIAL ONE (08:23)
[2018-10-18] MEDS ORDERED: FENTANYL CITRATE/PF 100MCG/2 ML INJ ONE (08:24)
[2018-10-18] MEDS ORDERED: LIDOCAINE HCL 1% LOCAL INJ 20 ML VIAL ONE (08:31)
[2018-10-18] MEDS ORDERED: SODIUM CHLORIDE 0.9% 50ML 50 ML ONE (08:32)
--- NOTE | 2018-10-18 10:21 | Consultation ---
DATE OF CONSULTATION: 10/17/2018 REASON FOR CONSULTATION: Diverticulitis. HISTORY OF PRESENT ILLNESS: This patient who is a 68-year-old white female with history of diverticular disease comes in with fever, chills, and abdominal pain. The patient tells me she had similar symptoms before. She had a CT scan that showed diverticulitis and abscess. The patient is being admitted and I am asked to see her. The patient had history of diverticular disease before. PAST MEDICAL HISTORY: Diabetes mellitus type 2 diagnosed in 2016, hepatitis C, which was treated recurrent diverticulitis x3, history of UTI, history of COPD. PAST SURGICAL HISTORY: Laparoscopic endometrial biopsy, right lung surgery to remove foreign object, and in 2016 had abdominal surgery with sigmoid surgery. FAMILY HISTORY: Renal failure and diabetes. SOCIAL HISTORY: She smokes half a pack a day for several years. No drug abuse or alcohol abuse. HOME MEDICATIONS: She is on Cipro, Flagyl and insulin. REVIEW OF SYSTEMS: GENERAL: She is fatigued, having fever and chills. : There is no urgency. No frequency. HEENT: There is no headache or visual changes. GI: She has some nausea. Abdominal pain. All other systems otherwise in normal limit. LABORATORY DATA: White count on admission was 22.6, today 15.58, hemoglobin 13. Sodium 138, potassium 3.9, creatinine 0.69. MEDICATIONS: She is currently on Zosyn. PHYSICAL EXAMINATION: GENERAL: She is currently alert, oriented, does not seem to be in acute distress. VITAL SIGNS: Stable currently, afebrile, temperature 97.1, heart rate 86, respirations 18, blood pressure 137/63. HEENT: She is not icteric. NECK: Supple. CHEST: Clear. HEART: S1, S2. No murmur. ABDOMEN: Soft. Bowel sounds present. EXTREMITIES: No edema. SKIN: No rash. IMPRESSION: 1. Diverticulitis with abscess. Recommend CT guided aspiration, obtain and send for culture and sensitivity. Continue with Zosyn. 2. Colorectal surgery evaluation. DICTATION ENDS HERE. MD NAZ Alfredo/EVA /[id number]
--- NOTE | 2018-10-18 11:38 | Diagnostic Imaging Report ---
PROCEDURE: Drainage catheter placement Procedural Personnel Attending physician(s): Ronnie Mcintyre MD Fellow physician(s): None Resident physician(s): None Advanced practice provider(s): None Pre-procedure diagnosis: Diverticular abscess Post-procedure diagnosis: Same Indication: Fever associated with fluid collection Additional clinical history: None Complications: No immediate complications. IMPRESSION: Percutaneous placement of a 12 Algerian drainage catheter into midline diverticular abscess, yielding 30 mL of purulent fluid. Plan: Samples sent for cultures. Drain to gravity. Flush 10cc NS every shift. PROCEDURE SUMMARY: - Diverticular abscess pelvic drainage catheter placement under CT guidance - Additional procedure(s): None PROCEDURE DETAILS: Pre-procedure Consent: Informed consent for the procedure including risks, benefits and alternatives was obtained and time-out was performed prior to the procedure. Preparation: The site was prepared and draped using maximal sterile barrier technique including cutaneous antisepsis. Anesthesia/sedation Level of anesthesia/sedation: Moderate sedation (conscious sedation) Anesthesia/sedation administered by: Independent trained observer under attending supervision with continuous monitoring of the patient?s level of consciousness and physiologic status Total intra-service sedation time (minutes): 45 Drainage catheter placement The patient was positioned supine. Initial imaging was performed. Local anesthesia was administered. The fluid collection was accessed using an access needle followed by wire insertion and serial dilation and a drainage catheter was placed. Position of the drainage catheter within the fluid collection was confirmed. - Initial imaging findings: Pelvic diverticular abscess - Drainage catheter placed: Uresil 12Fr - External catheter securement: Non-absorbable suture - Post-drainage imaging findings: Near-complete drainage of the fluid collection Contrast Contrast agent: None Radiation Dose CT dose length product (mGy-cm): 827.0. Additional Details Additional description of procedure: None Equipment details: None Specimens removed: Aspirated fluid was sent for analysis. Estimated blood loss (mL): Less than 10 Standardized report: [email or web address] Attestation Signer name: Ronnie Mcintyre MD I attest that I was present for the entire procedure. I reviewed the stored images and agree with the report as written. Signed by: Ronnie Mcintyre MD on 10/18/2018 11:35 AM
--- NOTE | 2018-10-18 13:42 | Progress Note ---
DATE: 10/18/2018 Medicine Progress Note SUBJECTIVE: The patient is doing well today. She underwent IR procedure for abscess drainage. She now has a drain in place. Cardiology was consulted for cardiac clearance. At this time, Surgery would like to do things conservatively with drain placement and sent for culture. ID was involved and consulted on this case as well. PHYSICAL EXAMINATION: VITAL SIGNS: Temperature is 97.7, pulse is 83, respiratory rate is 19, blood pressure is 150/68, pulse ox 95% on room air. GENERAL: Not in acute distress. Alert and oriented x3. Cooperative on examination. HEENT: Head is normocephalic and atraumatic. Eyes; pupils are equal, round, and reactive to light bilaterally. Extraocular movements are intact bilaterally. Throat, no evidence of erythema or exudates in the posterior pharynx. Has poor dentition. NECK: Supple. Good range of motion. PULMONARY: Clear to auscultation bilaterally. No wheezing, no rales, no rhonchi, no crackles appreciated. CARDIOVASCULAR: Positive S1, S2. No murmurs, rubs, or gallops appreciated. ABDOMEN: Soft, nondistended, and nontender to palpation. Bowel sounds present. MUSCULOSKELETAL: Strength is 5/5 throughout. No evidence of any muscle deficits on examination. No weakness appreciated. NEUROLOGICAL: Cranial nerves II through XII grossly intact. No evidence of any neurological deficits on exam. SKIN: Intact. Warm to touch. Good cap refill. PSYCHIATRIC: Normal affect and mood. EXTREMITIES: No edema. Good range of motion throughout. LABORATORY DATA: Lab findings shows white count 16.3, hemoglobin 13 hematocrit 40, platelets of 499. Chemistry; sodium 134, potassium 4, chloride 103, bicarb is 23, anion gap of 12, BUN is 7, creatinine 0.65, glucose 149. LFTs were within normal range. Lactate level was 18. MICROBIOLOGY: Blood cultures, no growth. Abscess collection sent for growth is pending. IMAGING STUDIES: Shows CT-guided diverticular abscess drainage. Aspiration shows 30 mL of purulent fluid collected. IMPRESSION: 1. Perforated sigmoid diverticulitis with diverticular abscess status post IR drainage on 10/18/2018 with a drain placed. 2. Leukocytosis secondary to perforated sigmoid diverticulitis. 3. Abdominal pain with nausea, vomiting, decreased oral intake. 4. Type 2 diabetes. PLAN: At this time, the patient has a drain placed by IR. An abscess collection was sent to the lab. We will continue to follow abscess collection cultures. Continue with IV antibiotics. ID is following in relation to that. Cardiology was consulted for clearance in the event she will need surgery at some point. General Surgery is following as well. She will continue n.p.o. until the diet is changed by Surgery. Pain control as well. We will monitor the drains very closely. Repeat labs in the morning. MD MARJORIE Gaffney/EVA /[id number]
[2018-10-18] MEDS: DEXTROSE 5%/0.9% SOD CHL 1,000 ML IV SCH (13:45)
--- NOTE | 2018-10-18 14:30 | NUR ---
WOUND CARE NURSE INITIAL CONSULTATION. 68 YEAR OLD FEMALE ADMITTED TO [facility] WITH DX OF DIVERTICULITIS OF LARGE INTESTINE WITH PERFORATION. HEAD TO TOE SKIN ASSESSMENT PERFORMED TODAY. NO OPEN WOUNDS ARE PRESENT. PT HAD A DRAINAGE CATHETER PLACED THIS MORNING, SANGUINOUS DRAINAGE NOTED IN BAG. PT IS AAOX3 , SHE AMBULATORY AND ABLE TO REPOSITION SELF. NO OTHER CONCERNS ARE NOTED AT THIS TIME. LABS: WBC: 16.34 ALB: 2.9 GLUCOSE: 181. PT INSTRUCTED TO REPOSITION SELF EVERY TWO HOURS AND DC. STATES UNDERSTANDING. THANKS FOR THIS CONSULTATION. Addendum: 10/18/18 at 1437 by Margarette Lorenz RN Amended: Links added.
--- NOTE | 2018-10-18 15:59 | Progress Note ---
DATE: SUBJECTIVE: Ms. Moura is doing better. No new complaints. I had a very long meeting with the family. Discussed all the findings so far, all the labs. The patient is currently lying in bed comfortably. PHYSICAL EXAMINATION: GENERAL: She is currently alert, oriented, does not seem in acute distress. VITAL SIGNS: Stable, currently afebrile. HEENT: She is not icteric. NECK: Supple. CHEST: Clear. HEART: S1, S2. No murmur. ABDOMEN: Soft. IMPRESSION AND PLAN: Abscess status post drainage. Continue IV antibiotic. Await culture and sensitivity. MD NAZ Alfredo/EVA /[id number]
--- NOTE | 2018-10-18 16:23 | NUR ---
CM SPOKE TO PATIENT AT BEDSIDE REGARDING IMM LETTER. IMM LETTER GIVEN WITH EXPLANATION BASED ON ANTICIPATED DISCHARGE DATE. ORIGINAL SIGNED AND PLACED IN CHART; COPY OF ORIGINAL DOCUMENT GIVEN TO PATIENT AT BEDSIDE AND PLACED IN CARE TRANSITION FOLDER. CM CONTACT INFORMATION GIVEN TO PATIENT FOR ANY NEEDS OR CONCERNS. PATIENT WITH NO FURTHER QUESTIONS.
--- NOTE | 2018-10-18 17:23 | NUR ---
PT C/O PAIN MEDICATED.LT ABD DRAINAGE BAG IN PLACE BLOODY DRAINAGE.
--- NOTE | 2018-10-18 19:43 | NUR ---
RECEIVED PT IN SITTING ON THE SIDE OF THE BED .PT HAS ABD DRESSING WITH GUY DRAINAGE .RESPIRATIONS ARE EVEN AND UNLABORED .CALL LIGHT WITH IN REACH .CONTINUE TO MONITOR
[2018-10-19] VITALS (8 sets, daily range): BP systolic 129–157; BP diastolic 61–76
[2018-10-19] MEDS: HYDROMORPHONE 1MG/1ML INJ IV PRN ×6 (02:40→23:10)
[2018-10-19] MEDS: ONDANSETRON HCL INJ 2MG/ML 2ML 2 MG/ML VIAL IV PRN ×6 (02:40→23:10)
[2018-10-19] MEDS: PIPER-TAZ 3.375 GM 50 ML IV SCH ×3 (02:40→06:22)
[2018-10-19] MEDS: DEXTROSE 5%/0.9% SOD CHL 1,000 ML IV SCH ×2 (02:40→03:43)
[2018-10-19 05:41] LABS: BASOPHILS # (AUTO) 0.1 (0.0-0.1); BASOPHILS % 0.5 % (0.0-1.0); EOSINOPHILS # (AUTO) 0.4 (0.0-0.4); EOSINOPHILS % 1.9 % (0.0-6.0); HEMATOCRIT 39.9 % (34.2-44.1); HEMOGLOBIN 13.2 g/dL (12.0-16.0); LYMPHOCYTES # (AUTO) 4.5 (1.0-3.2); LYMPHOCYTES % 22.1 % (18.0-39.1); MEAN CORPUSCULAR HEMOGLOBIN 28.9 pg (28-32); MEAN CORPUSCULAR HGB CONC 33.1 g/dL (31-35); MEAN CORPUSCULAR VOLUME 87.5 fL (81-99); MONOCYTES # (AUTO) 2.1 (0.2-0.8); MONOCYTES % 10.2 % (4.4-11.3); NEUTROPHILS # (AUTO) 13.3 (2.1-6.9); NEUTROPHILS % 64.7 % (38.7-80.0); PLATELET COUNT 504 x10e3/uL (140-360); RED BLOOD COUNT 4.56 x10e6/uL (3.6-5.1); RED CELL DISTRIBUTION WIDTH 12.9 % (11.7-14.4)
[2018-10-19 06:08] LABS: ANION GAP 11.7 mmol/L (8-16); BLOOD UREA NITROGEN 5 mg/dL (7-26); BUN/CREATININE RATIO 7 (6-25); CALCIUM 8.5 mg/dL (8.4-10.2); CARBON DIOXIDE 24 mmol/L (22-29); CHLORIDE 101 mmol/L (98-107); CREATININE, SERUM 0.69 mg/dL (0.57-1.11); EST GLOMERULAR FILTRATION RATE > 60 ML/MIN (60-); GLUCOSE 178 mg/dL (74-118); POTASSIUM 3.7 mmol/L (3.5-5.1); SODIUM 133 mmol/L (136-145)
--- NOTE | 2018-10-19 06:30 | NUR ---
PT C/O PAIN AND GIVEN DILAUDID ORDERED.CALL LIGHT WITH IN REACH.
[2018-10-19] MEDS: INSULIN LISPRO 100 UNIT/1 ML 3ML VIAL SQ SCH ×4 (07:30→21:00)
--- NOTE | 2018-10-19 07:30 | NUR ---
PT UP IN BED PAIN LEVEL 4 ,DRAINAGE BAG PATENT AND IN PLACE
[2018-10-19 08:22] LABS: EOSINOPHILS % (MANUAL) 3 % (0-7); LYMPHOCYTES % (MANUAL) 23 % (19-48); MONOCYTES % (MANUAL) 10 % (3.4-9.0); NEUTROPHILS % (MANUAL) 64 % (40-74); PLATELET ESTIMATE SLIGHTLY INCREASED; PLATELET MORPHOLOGY COMMENT NORMAL; RBC MORPHOLOGY COMMENT NORMAL
--- NOTE | 2018-10-19 11:30 | NUR ---
PT UP IN CHAMPION ,STATES PAIN LEVEL 5,DRAIN BAG IN PLACE
--- NOTE | 2018-10-19 12:58 | Progress Note ---
DATE: 10/19/2018 Medicine Progress Note SUBJECTIVE: The patient is doing well today with no other issues. The drain that she had has a small amount of drainage. She is afebrile, normotensive. Respiratory rate is good. Has no other complaints at this time. PHYSICAL EXAMINATION: VITAL SIGNS: Temperature 97.2, pulse 88, respiratory rate is 19, blood pressure 146/65, pulse ox 95% on room air. GENERAL: Not in acute distress. Alert and oriented x3. Cooperative on examination. HEENT: Head is normocephalic and atraumatic. Eyes; pupils are equal, round, and reactive to light bilaterally. Extraocular movements are intact bilaterally. Throat, no evidence of erythema or exudates in the posterior pharynx. Has poor dentition. NECK: Supple. Good range of motion. PULMONARY: Clear to auscultation bilaterally. No wheezing, no rales, no rhonchi, no crackles appreciated. CARDIOVASCULAR: Positive S1, S2. No murmurs, rubs, or gallops appreciated. ABDOMEN: Soft, nondistended, and nontender to palpation. Bowel sounds present. MUSCULOSKELETAL: Strength is 5/5 throughout. No evidence of any muscle deficits on examination. No weakness appreciated. NEUROLOGICAL: Cranial nerves II through XII grossly intact. No evidence of any neurological deficits on exam. SKIN: Intact. Warm to touch. Good cap refill. PSYCHIATRIC: Normal affect and mood. EXTREMITIES: No edema. Good range of motion throughout. LABORATORY DATA: Lab findings show white count increased to 20.5, hemoglobin 13.2, hematocrit 39.9, platelets of 504. Chemistry; sodium 136, potassium 3.7, chloride 101, bicarb 24, anion gap of 11.7. MICROBIOLOGY: Wound cultures shows gram-negative bacilli and two species. IMAGING STUDIES: None. IMPRESSION: 1. Perforated sigmoid diverticulitis with diverticular abscess, status post IR drainage performed on 10/18/2018 with a drain placed. 2. Leukocytosis secondary to perforated sigmoid diverticulitis. 3. Abdominal pain with nausea, vomiting, decreased oral intake. 4. Type 2 diabetes. PLAN: At this time, we will continue to monitor the drain. Wound cultures are consistent with Gram-negative bacilli on two species. Antibiotics were rearranged by ID. Follow ID recommendations. Wait for final wound cultures. Cardiology consulted for clearance. General Surgery is following as well. They are going to advance diet to clear liquids. At this time get a.m. labs. Monitor very closely. Her white count did elevate from yesterday to today. MD MARJORIE Gaffney/MARIOL /[id number]
--- NOTE | 2018-10-19 13:50 | NUR ---
PT DISCUSSED IN BARRIER ROUNDS;PT ON 2 NEW ABX, HAD A DRAIN PUT IN FOR ABSCESS PROJECTED DISCHARGE IS .
[2018-10-19] MEDS ORDERED: CEFEPIME HCL 1 GM VIAL IV SCH (14:00)
[2018-10-19] MEDS: CEFEPIME 1GM/NS 0.9% 50 ML 50 ML IV SCH ×2 (14:25→22:18)
[2018-10-19] MEDS: METRONIDAZOLE 500MG/NS 100ML 100 ML IV SCH ×2 (15:45→21:24)
--- NOTE | 2018-10-19 17:29 | NUR ---
PT RESTING NO S/S DISCOMFORT,TOLERATING CLEAR LIQUIDS WELL
[2018-10-20] VITALS (8 sets, daily range): BP systolic 111–155; BP diastolic 55–69
[2018-10-20] MEDS: ONDANSETRON HCL INJ 2MG/ML 2ML 2 MG/ML VIAL IV PRN ×5 (03:15→22:05)
[2018-10-20] MEDS: HYDROMORPHONE 1MG/1ML INJ IV PRN ×3 (03:15→18:05)
[2018-10-20 05:36] LABS: BASOPHILS # (AUTO) 0.1 (0.0-0.1); BASOPHILS % 0.5 % (0.0-1.0); EOSINOPHILS # (AUTO) 0.5 (0.0-0.4); EOSINOPHILS % 2.8 % (0.0-6.0); HEMOGLOBIN 12.6 g/dL (12.0-16.0); LYMPHOCYTES # (AUTO) 3.2 (1.0-3.2); LYMPHOCYTES % 19.5 % (18.0-39.1); MEAN CORPUSCULAR HGB CONC 33.2 g/dL (31-35); MEAN CORPUSCULAR VOLUME 87.4 fL (81-99); MONOCYTES # (AUTO) 1.6 (0.2-0.8); MONOCYTES % 9.5 % (4.4-11.3); NEUTROPHILS # (AUTO) 11.1 (2.1-6.9); NEUTROPHILS % 67.1 % (38.7-80.0); PLATELET COUNT 520 x10e3/uL (140-360); RED BLOOD COUNT 4.35 x10e6/uL (3.6-5.1); RED CELL DISTRIBUTION WIDTH 12.8 % (11.7-14.4)
[2018-10-20 05:47] LABS: ANION GAP 15.4 mmol/L (8-16); BLOOD UREA NITROGEN 5 mg/dL (7-26); BUN/CREATININE RATIO 8 (6-25); CALCIUM 8.8 mg/dL (8.4-10.2); CARBON DIOXIDE 24 mmol/L (22-29); CHLORIDE 99 mmol/L (98-107); CREATININE, SERUM 0.64 mg/dL (0.57-1.11); EST GLOMERULAR FILTRATION RATE > 60 ML/MIN (60-); GLUCOSE 133 mg/dL (74-118); POTASSIUM 3.4 mmol/L (3.5-5.1); SODIUM 135 mmol/L (136-145)
[2018-10-20] MEDS: CEFEPIME 1GM/NS 0.9% 50 ML 50 ML IV SCH ×3 (06:09→22:05)
[2018-10-20] MEDS: METRONIDAZOLE 500MG/NS 100ML 100 ML IV SCH ×3 (06:41→21:16)
--- NOTE | 2018-10-20 07:00 | NUR ---
PATIENT IS AWAKE AND IN STABLE CONDITION WITH NO S/S OF RESPIRATORY DISTRESS. 5/10 MID- LOWER ABD PAIN FROM DRAIN SITE. IV ANTIBIOTICS INFUSING. BED ALARM ON. CALL LIGHT IS WITHIN REACH, PATIENT INSTRUCTED TO CALL FOR ASSISTANCE NEEDED.
[2018-10-20 07:29] LABS: LYMPHOCYTES % (MANUAL) 21 % (19-48); MONOCYTES % (MANUAL) 11 % (3.4-9.0); NEUTROPHILS % (MANUAL) 68 % (40-74); PLATELET ESTIMATE SLIGHTLY INCREASED; PLATELET MORPHOLOGY COMMENT NORMAL; RBC MORPHOLOGY COMMENT NORMAL
[2018-10-20] MEDS: INSULIN LISPRO 100 UNIT/1 ML 3ML VIAL SQ SCH ×4 (07:30→21:16)
[2018-10-20] MEDS: HYDROCODONE/APAP 5MG-325MG TAB PO PRN ×2 (11:53→22:05)
--- NOTE | 2018-10-20 14:34 | Progress Note ---
DATE: 10/20/2018 Medicine Progress Note SUBJECTIVE: The patient is doing well today with no complaints. Actually, she complains of suprapubic pain with actual drainage. We will defer this to General Surgery. She is otherwise doing fine, has no other issues. She is afebrile as well. PHYSICAL EXAMINATION: VITAL SIGNS: She is afebrile and normotensive. Respiratory rate is good. She is saturating on room air. GENERAL: Not in acute distress. Alert and oriented x3. Cooperative on examination. HEENT: Head is normocephalic and atraumatic. Eyes; pupils are equal, round, and reactive to light bilaterally. Extraocular movements are intact bilaterally. Throat, no evidence of erythema or exudates in the posterior pharynx. Has poor dentition. NECK: Supple. Good range of motion. PULMONARY: Clear to auscultation bilaterally. No wheezing, rales, rhonchi, or crackles appreciated. CARDIOVASCULAR: Positive S1 and S2. No murmurs, rubs, or gallops appreciated. ABDOMEN: Soft, nondistended, and nontender to palpation. Bowel sounds present. MUSCULOSKELETAL: Strength is 5/5 throughout. No evidence of any muscle deficits on examination. No weakness appreciated. NEUROLOGIC: Cranial nerves II through XII grossly intact. No evidence of any neurological deficits on exam. SKIN: Intact. Warm to touch. Good cap refill. PSYCHIATRIC: Normal affect and mood. EXTREMITIES: No edema. Good range of motion throughout. LABORATORY DATA: CBC; WBC 16.5, down from 20.5; hemoglobin 12, hematocrit of 38, and platelets of 520. Chemistry; sodium 135, potassium 3.4, chloride 99, bicarbonate 24, anion gap of 15, BUN 5, creatinine is 0.64, glucose 133, and calcium 8.8. MICROBIOLOGY: Blood cultures negative. The wound culture or the abscess culture shows E coli and Klebsiella pneumoniae pansensitive. IMPRESSION: 1. Perforated sigmoid diverticulitis with diverticular abscess, status post IR drainage on 10/18/2018 with a drain placed. 2. Leukocytosis, improving, secondary to perforated sigmoid diverticulitis. 3. Abdominal pain with nausea, vomiting, and decreased oral intake, now improving. 4. Type 2 diabetes. PLAN: Her diet has been advanced to full liquid diet now per General Surgery. She is complaining of suprapubic pain, which I would defer to Surgery and I also told her to talk with General Surgery about this. Her wound cultures were positive for Klebsiella and E coli, which she is pansensitive and she is on the appropriate antibiotics. We will await for final recommendations by ID in terms of the patient will need oral antibiotics or not. In terms of the drain, she will likely go home with that, but I wanted to see what General Surgery's final recommendations on that particular situation. She will continue on full liquid diet for now. MD MARJORIE Gaffney/MARIOL /[id number]
--- NOTE | 2018-10-20 18:26 | Progress Note ---
DATE: SUBJECTIVE: Ms. Bates is doing better. No new complaints. A new drain was placed. REVIEW OF SYSTEMS: HEENT: Negative. PULMONARY: Negative. CARDIAC: Negative. : Negative. There is no new complaint. I reviewed with her laboratory data. I think the patient seemed to be a little forgetful. PHYSICAL EXAMINATION: GENERAL: She is currently alert, does not seem to be in acute distress. VITAL SIGNS: Stable, afebrile. HEENT: She is not icteric, normocephalic. NECK: Supple. No JVD. No lymphadenopathy. No thyromegaly. CHEST: Clear bilateral. HEART: S1, S2. ABDOMEN: Soft. Bowel sounds present. No tenderness. EXTREMITIES: No edema. IMPRESSION: 1. Perforated sigmoid diverticulitis. 2. Diverticular abscess status post drainage. 3. Leukocytosis, she is getting better. 4. Diabetes mellitus type 2. PLAN: Her cultures are showing E coli and Klebsiella pneumonia which pretty much pansensitive. We will keep her on Flagyl and cefepime for the time being. We will see how she has been doing in the next couple of days. Recheck CBC. Recheck Chem panel. She is still having significant amount of drainage. We will follow clinically. MD NAZ Alfredo/EVA /[id number]
--- NOTE | 2018-10-20 19:07 | NUR ---
BEDSIDE REPORT RECEIVED. PATIENT RESTING IN BED WITH EYES CLOSED. NO DISTRESS OBSERVED, NO S/S OF PAIN OBSERVED. BED LOCKED AND IN LOWEST POSITION, CALL LIGHT WITHIN EASY REACH. WILL CONTINUE TO MONITOR.
--- NOTE | 2018-10-20 19:07 | NUR ---
PATIENT RESTING IN BED- IN STABLE CONDITION WITH NO S/S OF RESPIRATORY DISTRESS. NO PAIN VOICED. CALL LIGHT IS WITHIN REACH, PATIENT INSTRUCTED TO CALL FOR ASSISTANCE NEEDED. BEDSIDE REPORT GIVEN TO ONCOMING NURSE.
[2018-10-21] VITALS (8 sets, daily range): BP systolic 128–167; BP diastolic 56–74
[2018-10-21 05:58] LABS: BASOPHILS # (AUTO) 0.1 (0.0-0.1); BASOPHILS % 0.8 % (0.0-1.0); EOSINOPHILS # (AUTO) 0.6 (0.0-0.4); HEMATOCRIT 41.2 % (34.2-44.1); HEMOGLOBIN 13.4 g/dL (12.0-16.0); LYMPHOCYTES # (AUTO) 2.8 (1.0-3.2); LYMPHOCYTES % 18.5 % (18.0-39.1); MEAN CORPUSCULAR HEMOGLOBIN 28.4 pg (28-32); MEAN CORPUSCULAR HGB CONC 32.5 g/dL (31-35); MEAN CORPUSCULAR VOLUME 87.3 fL (81-99); MONOCYTES # (AUTO) 1.3 (0.2-0.8); MONOCYTES % 8.6 % (4.4-11.3); NEUTROPHILS # (AUTO) 10.4 (2.1-6.9); NEUTROPHILS % 67.5 % (38.7-80.0); PLATELET COUNT 560 x10e3/uL (140-360); RED BLOOD COUNT 4.72 x10e6/uL (3.6-5.1); RED CELL DISTRIBUTION WIDTH 12.7 % (11.7-14.4)
[2018-10-21] MEDS: HYDROMORPHONE 1MG/1ML INJ IV PRN ×4 (06:10→21:32)
[2018-10-21] MEDS: ONDANSETRON HCL INJ 2MG/ML 2ML 2 MG/ML VIAL IV PRN ×4 (06:10→21:32)
[2018-10-21] MEDS: CEFEPIME 1GM/NS 0.9% 50 ML 50 ML IV SCH ×3 (06:10→22:44)
[2018-10-21 06:32] LABS: ANION GAP 17.5 mmol/L (8-16); BLOOD UREA NITROGEN 5 mg/dL (7-26); BUN/CREATININE RATIO 8 (6-25); CARBON DIOXIDE 24 mmol/L (22-29); CHLORIDE 101 mmol/L (98-107); CREATININE, SERUM 0.59 mg/dL (0.57-1.11); EST GLOMERULAR FILTRATION RATE > 60 ML/MIN (60-); GLUCOSE 123 mg/dL (74-118); POTASSIUM 3.5 mmol/L (3.5-5.1); SODIUM 139 mmol/L (136-145)
[2018-10-21] MEDS: METRONIDAZOLE 500MG/NS 100ML 100 ML IV SCH ×3 (06:41→21:31)
--- NOTE | 2018-10-21 06:50 | NUR ---
REPORT GIVEN TO ONCOMING NURSE, PATIENT IN STABLE CONDITION. NO NEEDS VOICED AT THIS TIME. BED LOCKED AND IN LOWEST POSITION, CALL LIGHT WITHIN EASY REACH.
--- NOTE | 2018-10-21 07:15 | NUR ---
PATIENT IS ALERT AND IN STABLE CONDITION WITH NO S/S OF RESPIRATORY DISTRESS. PATIENT C/O MID-ABD/LEFT ABD PAIN /- PAIN MEDICATION GIVEN TO THE PATIENT RECENTLY. IV ANTIBIOTIC INFUSING. CALL LIGHT IS WITHIN REACH, PATIENT INSTRUCTED TO CALL FOR ASSISTANCE NEEDED.
[2018-10-21] MEDS: INSULIN LISPRO 100 UNIT/1 ML 3ML VIAL SQ SCH ×4 (07:30→21:22)
--- NOTE | 2018-10-21 13:44 | NUR ---
Nutrition Screen Note RD Recommendation for Physician: Advance diet as tolerated to GI soft Plan of Care: RD following, monitoring for tolerance and adequacy Nutrition reason for involvement: LOS Primary Diagnose(s):diverticulitis of large intestine with perforation PMH: diverticulosis, T2DM Ht:64 in Wt:156.01lb BMI:26.8 kg/m2 IBW:120lb +/-10% RD Assessment: (10/21/2018) Chart reviewed. Labs and meds reviewed. Initial encounter with patient. Pt with a good appetite and Po intake and is ready for solids. No difficulty chewing or swallowing. No N,V, loose stools currently. No known food allergies. Current Diet: Full Liquid Diet Malnutrition Evaluation (10/21/2018) The patient does not meet criteria for a specified degree of malnutrition at this time. Will re-evaluate at follow-up as appropriate. Diet Education Needs Assessment: Diet education not indicated. Nutrition Care Level: Low, Signed: Cory De Leon RD, LD, [facility]
--- NOTE | 2018-10-21 18:15 | Progress Note ---
DATE: 10/21/2018 Medicine Progress Note SUBJECTIVE: The patient is doing well today with no complaints. No overnight events. PHYSICAL EXAMINATION: VITAL SIGNS: Temperature 97.2, pulse 75, respirations 18, blood pressure 162/70, pulse ox 93% on room air. GENERAL: Not in acute distress. Alert and oriented x3. Cooperative on examination. HEENT: Head; normocephalic, atraumatic. Eyes; pupils are equal, round, and reactive to light bilaterally. Extraocular movements intact bilaterally. Throat; no evidence of erythema or exudates in the posterior pharynx. Has poor dentition. NECK: Supple. Good range of motion. PULMONARY: Clear to auscultation bilaterally. No wheezing, no rales, no rhonchi, no crackles appreciated. CARDIOVASCULAR: Positive S1 and S2. No murmurs, rubs, or gallops appreciated. ABDOMEN: Soft, nondistended, and nontender to palpation. Bowel sounds present. MUSCULOSKELETAL: Strength is 5/5 throughout. No evidence of any muscle deficits on examination. No weakness appreciated. NEUROLOGIC: Cranial nerve II through XII grossly intact. No evidence of any neurological deficits on exam. SKIN: Intact. Warm to touch. Good cap refill. PSYCHIATRIC: Normal affect and mood. EXTREMITIES: No edema. Good range of motion throughout. LAB FINDINGS: White count 15.3, hemoglobin 13, hematocrit is 41, and platelets of 56. Chemistry reviewed and stable. IMPRESSION: 1. Perforated sigmoid diverticulitis with diverticular abscess, status post IR drainage on 10/18/2018, with a drain placed. 2. Leukocytosis, still elevated, but improving secondary to perforated sigmoid diverticulitis. 3. Abdominal pain with nausea, vomiting, and decreased oral intake, it is now improving. 4. Type 2 diabetes. PLAN: White count still slightly elevated. She is on full liquid diet per General Surgery. She has no other pain at this time. Wound cultures, no issues, on IV cefepime. I will discuss this with ID in terms of the fact if she . I will also discuss this with General Surgery about the drain. The patient will likely be here until Tuesday to continue aggressive IV antibiotic therapy. MD MARJORIE Gaffney/MODL /[id number]
--- NOTE | 2018-10-21 18:58 | NUR ---
PATIENT IN STABLE CONDITION WITH NO S/S OF RESPIRATORY DISTRESS. NO PAIN VOICED. DRAINAGE INTACT TO MID-ABD. CALL LIGHT IS WITHIN REACH, PATIENT INSTRUCTED TO CALL FOR ASSISTANCE NEEDED. BEDSIDE REPORT GIVEN TO ONCOMING NURSE.
--- NOTE | 2018-10-21 19:00 | NUR ---
Received patient from day nurse, patient is stable, introduced self to patient and patient denies any concerns.
[2018-10-22] VITALS (9 sets, daily range): BP systolic 132–168; BP diastolic 63–79
[2018-10-22] MEDS: HYDROMORPHONE 1MG/1ML INJ IV PRN ×4 (01:57→19:34)
[2018-10-22] MEDS: ONDANSETRON HCL INJ 2MG/ML 2ML 2 MG/ML VIAL IV PRN ×4 (01:57→19:34)
[2018-10-22 05:41] LABS: BASOPHILS # (AUTO) 0.1 (0.0-0.1); BASOPHILS % 0.8 % (0.0-1.0); EOSINOPHILS # (AUTO) 0.6 (0.0-0.4); EOSINOPHILS % 4.5 % (0.0-6.0); HEMATOCRIT 37.6 % (34.2-44.1); HEMOGLOBIN 12.6 g/dL (12.0-16.0); LYMPHOCYTES # (AUTO) 3.4 (1.0-3.2); LYMPHOCYTES % 26.9 % (18.0-39.1); MEAN CORPUSCULAR HEMOGLOBIN 28.8 pg (28-32); MEAN CORPUSCULAR HGB CONC 33.5 g/dL (31-35); MONOCYTES # (AUTO) 1.2 (0.2-0.8); MONOCYTES % 9.5 % (4.4-11.3); NEUTROPHILS # (AUTO) 7.4 (2.1-6.9); NEUTROPHILS % 57.8 % (38.7-80.0); PLATELET COUNT 569 x10e3/uL (140-360); RED BLOOD COUNT 4.37 x10e6/uL (3.6-5.1); RED CELL DISTRIBUTION WIDTH 12.6 % (11.7-14.4)
[2018-10-22 06:09] LABS: ANION GAP 13.3 mmol/L (8-16); BLOOD UREA NITROGEN 7 mg/dL (7-26); BUN/CREATININE RATIO 11 (6-25); CALCIUM 8.6 mg/dL (8.4-10.2); CARBON DIOXIDE 27 mmol/L (22-29); CHLORIDE 101 mmol/L (98-107); CREATININE, SERUM 0.62 mg/dL (0.57-1.11); EST GLOMERULAR FILTRATION RATE > 60 ML/MIN (60-); GLUCOSE 124 mg/dL (74-118); POTASSIUM 3.3 mmol/L (3.5-5.1); SODIUM 138 mmol/L (136-145)
[2018-10-22] MEDS: CEFEPIME 1GM/NS 0.9% 50 ML 50 ML IV SCH ×3 (06:19→21:38)
[2018-10-22] MEDS: METRONIDAZOLE 500MG/NS 100ML 100 ML IV SCH ×3 (06:19→21:38)
--- NOTE | 2018-10-22 07:10 | NUR ---
PATIENT IS ALERT AND IN STABLE CONDITION WITH NO S/S OF RESPIRATORY DISTRESS. PATIENT C/O MID-ABD PAIN 5/10- PAIN MEDICATION GIVEN RECENTLY. IV ANTIBIOTIC INFUSING. CALL LIGHT IS WITHIN REACH, PATIENT INSTRUCTED TO CALL FOR ASSISTANCE NEEDED.
--- NOTE | 2018-10-22 07:13 | NUR ---
Patient endorsed to next shift for continuity of care.
[2018-10-22] MEDS: INSULIN LISPRO 100 UNIT/1 ML 3ML VIAL SQ SCH ×4 (07:30→21:39)
--- NOTE | 2018-10-22 12:39 | NUR ---
PATIENT AMBULATING IN THE HALLWAY- IN STABLE CONDITION WITH NO S/S OF RESPIRATORY DISTRESS.
[2018-10-22] MEDS ORDERED: POTASSIUM CHLORIDE 20 MEQ TAB CR PO ONE (14:45)
--- NOTE | 2018-10-22 15:01 | NUR ---
DRESSING AROUND PERCUTANEOUS DRAINAGE CHANGED- DRESSING IS DRY AND INTACT.
--- NOTE | 2018-10-22 17:26 | NUR ---
CALL PLACED OUT TO DR. NINA REGARDING DIET ORDER. RECEIVED CALLBACK- ORDER TO CHANGE DIET TO GI SOFT
--- NOTE | 2018-10-22 17:56 | NUR ---
RECEIVED ORDER FROM DR. COFFEY REGARDING PATIENT'S ELEVATED BP OF 166/79.
--- NOTE | 2018-10-22 18:01 | Progress Note ---
DATE: 10/22/2018 Medicine Progress Note SUBJECTIVE: The patient is doing well. She just wants her diet advanced to solids, which we will have General Surgery notified, that has been discussed with nursing staff. Otherwise, no other overnight events, currently is doing well. PHYSICAL EXAMINATION: VITAL SIGNS: Temperature is 97, pulse 77, respiratory rate is 20, blood pressure 156/78. GENERAL: Not in acute distress. Alert and oriented x3. Cooperative on examination. HEENT: Head is normocephalic and atraumatic. Eyes; pupils are equal, round, and reactive to light bilaterally. Extraocular movements are intact bilaterally. Throat, no evidence of erythema or exudates in the posterior pharynx. Has poor dentition. NECK: Supple. Good range of motion. PULMONARY: Clear to auscultation bilaterally. No wheezing, no rales, no rhonchi, no crackles appreciated. CARDIOVASCULAR: Positive S1, S2. No murmurs, rubs, or gallops appreciated. ABDOMEN: Soft, nondistended, and nontender to palpation. Bowel sounds present. MUSCULOSKELETAL: Strength is 5/5 throughout. No evidence of any muscle deficits on examination. No weakness appreciated. NEUROLOGICAL: Cranial nerves II through XII grossly intact. No evidence of any neurological deficits on exam. SKIN: Intact. Warm to touch. Good cap refill. PSYCHIATRIC: Normal affect and mood. EXTREMITIES: No edema. Good range of motion throughout. LABORATORY DATA: White count 12.7, hemoglobin 12.6, hematocrit of 37.6, platelets of 569. Sodium 138, potassium 3.3, chloride 101, bicarb 27, anion gap of 13, BUN is 7, creatinine is 0.62, calcium is 8.6. MICROBIOLOGY: Blood cultures were negative. Wound cultures, E coli, Klebsiella pneumoniae. IMAGING STUDIES: None. IMPRESSION: 1. Perforated sigmoid diverticulitis with diverticular abscess, status post IR drainage on 10/18/2018, with a drain placed. 2. 3. Leukocytosis, much improved white count. 4. Abdominal pain with nausea, vomiting, and decreased oral intake, improving. 5. Type 2 diabetes. PLAN: White count improved tremendously. She is on IV antibiotics. She wants her diet advanced to regular which I will defer to General Surgery. Continue with IV antibiotics for now. I need to talk with ID. In terms of antibiotic regimen is able to go with oral or IV at discharge. MD MARJORIE Gaffney/EVA /[id number]
[2018-10-22] MEDS: LOSARTAN POTASSIUM 100 MG TAB PO SCH (18:12)
--- NOTE | 2018-10-22 18:52 | NUR ---
PATIENT IS SITTING UP IN BED- IN STABLE CONDITION WITH NO S/S OF RESPIRATORY DISTRESS. DRESSING IS DRY AND INTACT TO MID-ABD DRAIN SITE. CALL LIGHT IS WITHIN REACH, PATIENT INSTRUCTED TO CALL FOR ASSISTANCE NEEDED. BEDSIDE REPORT GIVEN TO ONCOMING NURSE.
--- NOTE | 2018-10-22 19:00 | NUR ---
Received patient from day nurse, patient is stable, alert and oriented, introduced self to patient and patient educated on how to use call light to call nurses for help, patient educated to call for help at all times to prevent falls, patient verbalized understanding, safety and fall precaustions maintained as per hospital protocol: bed in lowest position and locked, needed items beside bed and call light placed close to patient, patient instructed to use it to call for help, patient is currently stable will continue to monitor.
[2018-10-23 00:22] VITALS: BP 142/67
[2018-10-23 04:00] VITALS: BP 186/87
[2018-10-23] MEDS: METRONIDAZOLE 500MG/NS 100ML 100 ML IV SCH ×2 (05:45→15:03)
[2018-10-23 05:59] LABS: BASOPHILS # (AUTO) 0.1 (0.0-0.1); EOSINOPHILS # (AUTO) 0.5 (0.0-0.4); EOSINOPHILS % 4.1 % (0.0-6.0); HEMOGLOBIN 13.9 g/dL (12.0-16.0); LYMPHOCYTES # (AUTO) 3.1 (1.0-3.2); LYMPHOCYTES % 23.6 % (18.0-39.1); MEAN CORPUSCULAR HEMOGLOBIN 28.5 pg (28-32); MEAN CORPUSCULAR HGB CONC 33.1 g/dL (31-35); MEAN CORPUSCULAR VOLUME 86.2 fL (81-99); MONOCYTES # (AUTO) 1.2 (0.2-0.8); NEUTROPHILS % 61.8 % (38.7-80.0); PLATELET COUNT 693 x10e3/uL (140-360); RED BLOOD COUNT 4.87 x10e6/uL (3.6-5.1); RED CELL DISTRIBUTION WIDTH 12.9 % (11.7-14.4)
[2018-10-23] MEDS: HYDROMORPHONE 1MG/1ML INJ IV PRN ×3 (06:12→17:10)
[2018-10-23] MEDS: ONDANSETRON HCL INJ 2MG/ML 2ML 2 MG/ML VIAL IV PRN ×3 (06:12→17:10)
[2018-10-23] MEDS: CEFEPIME 1GM/NS 0.9% 50 ML 50 ML IV SCH (06:13)
[2018-10-23 06:22] LABS: ANION GAP 15.8 mmol/L (8-16); BLOOD UREA NITROGEN 8 mg/dL (7-26); BUN/CREATININE RATIO 12 (6-25); CALCIUM 9.7 mg/dL (8.4-10.2); CARBON DIOXIDE 26 mmol/L (22-29); CHLORIDE 100 mmol/L (98-107); CREATININE, SERUM 0.65 mg/dL (0.57-1.11); EST GLOMERULAR FILTRATION RATE > 60 ML/MIN (60-); GLUCOSE 154 mg/dL (74-118); POTASSIUM 3.8 mmol/L (3.5-5.1); SODIUM 138 mmol/L (136-145)
--- NOTE | 2018-10-23 07:11 | NUR ---
Patient endorsed to next shift for continuity of care.
--- NOTE | 2018-10-23 07:13 | NUR ---
no drainage from bag last night
[2018-10-23] MEDS: INSULIN LISPRO 100 UNIT/1 ML 3ML VIAL SQ SCH ×2 (07:41→11:30)
[2018-10-23 08:04] VITALS: BP 186/87
--- NOTE | 2018-10-23 08:21 | NUR ---
patient ambulating in hallway, not in any distress
[2018-10-23 08:35] VITALS: BP 159/77
[2018-10-23] MEDS: LOSARTAN POTASSIUM 100 MG TAB PO SCH (08:38)
[2018-10-23 12:24] VITALS: BP 140/63
[2018-10-23] MEDS ORDERED: IOPAMIDOL 300 MG/ML 15ML VIAL IT ONE (14:12)
--- NOTE | 2018-10-23 14:17 | NUR ---
patient off the unit for procedure , stable, Dr Gonzales here for rounds , Dr Aden murray is ok with Drain to take out by radiology
--- NOTE | 2018-10-23 16:00 | Progress Note ---
DATE: 10/23/2018 Medicine Progress Note SUBJECTIVE: The patient is doing well today with no complaints. Antibiotics were sent. Levaquin and Flagyl have been readied for 3 weeks for home. Now we are waiting for IR to remove the drain. She will need to follow up with surgery and ID in 2 weeks' time. She is currently doing well with no complaints. PHYSICAL EXAMINATION: VITAL SIGNS: Temperature, she is afebrile, normotensive. Respiratory rate is good. GENERAL: Not in acute distress. Alert and oriented x3. Cooperative on examination. HEENT: Head is normocephalic and atraumatic. Eyes; pupils are equal, round, and reactive to light bilaterally. Extraocular movements are intact bilaterally. Throat, no evidence of erythema or exudates in the posterior pharynx. Has poor dentition. NECK: Supple. Good range of motion. PULMONARY: Clear to auscultation bilaterally. No wheezing, no rales, no rhonchi, no crackles appreciated. CARDIOVASCULAR: Positive S1, S2. No murmurs, rubs, or gallops appreciated. ABDOMEN: Soft, nondistended, and nontender to palpation. Bowel sounds present. MUSCULOSKELETAL: Strength is 5/5 throughout. No evidence of any muscle deficits on examination. No weakness appreciated. NEUROLOGICAL: Cranial nerves II through XII grossly intact. No evidence of any neurological deficits on exam. SKIN: Intact. Warm to touch. Good cap refill. PSYCHIATRIC: Normal affect and mood. EXTREMITIES: No edema. Good range of motion throughout. LABORATORY DATA: Reviewed. It showed white count of 12.9, hemoglobin 13.9, hematocrit is 42, her platelets were 693. Chemistries reviewed and stable. MICROBIOLOGY: Wound cultures noted. Antibiotics written. Blood cultures were negative. IMAGING STUDIES: Nothing new. IMPRESSION: 1. Perforated sigmoid diverticulitis with diverticular abscess, status post IR drainage on 10/18/2018 with drain placement. 2. Leukocytosis, improved. 3. Abdominal pain with nausea and vomiting, and decreased oral intake. 4. Type 2 diabetes. PLAN: At this time, white count is improved 12.9. Oral antibiotics written for Levaquin and Flagyl per ID. Has been cleared by ID for discharge. The drain also wants to be pulled by General Surgery and ID, which we will have IR pull the drain. It seems like the patient has been cleared by both General Surgery and ID, which we will go ahead and discharge her to home. Prescriptions for antibiotics have been written. Tylenol No.3 was written in the chart. She will be possibly discharged later today if everything is done by today. MD MARJORIE Gaffney/EVA /[id number]
--- NOTE | 2018-10-23 16:06 | Diagnostic Imaging Report ---
PROCEDURE: Drainage catheter check Procedural Personnel Attending physician(s): Ronnie Mcintyre MD Fellow physician(s): None Resident physician(s): None Advanced practice provider(s): None Pre-procedure diagnosis: Diverticular abscess Post-procedure diagnosis: Same Indication: Low drain output Additional clinical history: None Complications: No immediate complications. IMPRESSION: Drainage catheter check demonstrates decompression of prior pelvic diverticular abscess with persistent communication with the colon. The drainage catheter was left in place. Plan: Repeat drain check and assessment for removal in 3 weeks as an outpatient. If surgical resection is planned, drain can be removed at time of surgery. PROCEDURE SUMMARY: - Drainage catheter check under fluoroscopic guidance - Additional procedure(s): None PROCEDURE DETAILS: Pre-procedure Consent: Informed consent for the procedure including risks, benefits and alternatives was obtained and time-out was performed prior to the procedure. Preparation: The site was prepared and draped using maximal sterile barrier technique including cutaneous antisepsis. Anesthesia/sedation Level of anesthesia/sedation: No sedation Anesthesia/sedation administered by: Not applicable Drainage catheter check The patient was positioned supine. Initial imaging was performed with contrast injection through the indwelling tube. - Initial imaging findings: Decompression of prior abscess cavity. 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 Contrast Contrast agent: Isovue 300 Contrast volume (mL): 10 Radiation Dose Fluoroscopy time (minutes): 0.4 Reference air kerma (mGy): 5.19 Kerma area product (Gy-cm2): 1.68 Additional Details Additional description of procedure: None Equipment details: None Specimens removed: None Estimated blood loss (mL): Less than 10 Standardized report: [id number] Attestation Signer name: Ronnie Mcintyre MD I attest that I was present for the entire procedure. I reviewed the stored images and agree with the report as written. Signed by: Ronnie Mcintyre MD on 10/23/2018 4:03 PM
--- NOTE | 2018-10-23 16:12 | NUR ---
Spoke to DR Bernal he said patient can be discharged with drain and PO antibiotics, also notified Dr Aden Waterman he stated its OK patient can be discharged home with drain and f/up with him on tuesday10/30/18, Discharge order recvd from Dr Gonzales thru phone
[2018-10-23] MEDS ORDERED: TYLENOL WITH C1 EACH PO (17:27)
--- NOTE | 2018-10-23 17:50 | NUR ---
patient discharged home, alert with no distress, explained her about Drain care patient verbalized understanding, and she demonstrated how to empty it, she aware about f.up appointment with Dr Aden murray, prescription given. IV canula removed with tip intact, no ss of infiltration, family at bed side to give ride, not in any distress
[2018-10-23 17:58] VITALS: BP 149/67
--- NOTE | 2018-10-26 01:10 | Discharge Summary ---
FINAL DISCHARGE DIAGNOSES: 1. Perforated sigmoid diverticulitis with a diverticular abscess status post IR drainage on 10/18/[address] with a drain in place and will be discharged with the drain with followup with General Surgery and Infectious Disease. 2. Leukocytosis, resolved. 3. Abdominal pain with nausea and vomiting, resolved. 4. Type 2 diabetes. CONSULTANTS: General Surgery, Infectious Disease. PHYSICAL EXAMINATION: VITAL SIGNS: Temperature is 96.6, pulse is 71, respiratory rate is 18, blood pressure is 149/67, and pulse ox 97% on room air. LABORATORY FINDINGS: White count on admission was 12.5 downtrended to 12, hemoglobin 13.9, hematocrit is 42, platelets of 693. Coagulation; PT 14, INR 1, PTT 38. Chemistry; sodium 138, potassium 3.8, chloride 100, bicarb 26, anion gap of 15, BUN is 8, creatinine is 0.65, glucose 154, calcium 9.7, total bilirubin is 0.4, AST 17, ALT 13, total protein 7.3, and albumin is 2.9. Lipase level is 18. Lactic acid on admission was 22, downtrending to 6.8. MICROBIOLOGY: Showed blood cultures were negative. Wound culture shows E. coli and Klebsiella pneumoniae. IMAGING STUDIES: Urinalysis concerning for UTI. CT abdomen and pelvis shows perforated sigmoid diverticulitis with associated 5.6 x 4.1 cm diverticular abscess, hepatic steatosis. Right adrenal 1.1 cm nodule indeterminate in single phase contrast enhanced images. Recommend one year followup adrenal mass protocol CT to assess for stability. I discussed this with the patient at bedside. She verbalized a followup accordingly. HOSPITAL COURSE: A 68-year-old female, who came in with complaints of abdominal pain, decreased oral intake, and fever, found to have a diverticular abscess on imaging studies. General Surgery and ID were consulted. The patient was on broad-spectrum IV antibiotics. General Surgery recommended for IR to place a drain and to drain the abscess and in the future will need some resection of the area of the diverticulitis. On 10/18/2018, IR placed a drain and aspirated the abscess and cultures were sent. Her cultures were positive for E. coli, Klebsiella pneumoniae. The patient maintained on broad-spectrum IV antibiotics while here. Blood cultures were negative. The patient was discharged on oral antibiotics with Levaquin and Flagyl for three total weeks by Infectious Disease. I also discussed this case with General Surgery and the patient is to maintain the drain and will follow up in this office in about 7 to 10 days. She was also advised to follow up with ID in 7 to 10 days. On the day of discharge, vital signs were stable, labs reviewed and stable. The patient is seen and evaluated, examined thoroughly on the day of discharge. No other complaints. The patient verbalized understanding and agreed to plan of care with followup appointment as an outpatient with primary care physician in 1 week and Infectious Disease and General Surgery in 7 to 10 days. MEDICATIONS: See med reconciliation form. DISPOSITION: To home. CONDITION: Stable. DIET: Heart healthy. In the event of any worsening symptoms, the patient was advised to come back to the ED for further evaluation. Discharge summary took greater than 35 minutes. MD MARJORIE Gaffney/EVA /[id number]
== END 2018-10-23 17:50 | disposition home or self-care (01) | DRG 872 ==
LOC: ER 13:37 → ERHOLD 17:27 → MED/SURG3 21:25
PROVIDERS: ADMIT Internal Medicine; ATTEND Internal Medicine
PROC: 0W9J30Z Drainage of Pelvic Cavity with Drainage Device, Percutaneous Approach (ICD-10-PCS; principal; 2018-10-18)
DX: A41.9 Sepsis, unspecified organism (principal); K57.20 Diverticulitis of large intestine with perforation and abscess without bleeding; N39.0 Urinary tract infection, site not specified; E11.9 Type 2 diabetes mellitus without complications; B96.20 Unspecified Escherichia coli [E. coli] as the cause of diseases classified elsewhere; B96.1 Klebsiella pneumoniae [K. pneumoniae] as the cause of diseases classified elsewhere; B18.2 Chronic viral hepatitis C; J44.9 Chronic obstructive pulmonary disease, unspecified; F17.200 Nicotine dependence, unspecified, uncomplicated; Z79.4 Long term (current) use of insulin; Z82.49 Family history of ischemic heart disease and other diseases of the circulatory system; Z83.3 Family history of diabetes mellitus; Z84.1 Family history of disorders of kidney and ureter
CPT/HCPCS: 36415; 49406; 49424; 74177; 74470; 80048; 80053; 81001; 82150; 82948; 83605; 83690; 85007; 85025; 85027; 85610; 85730; 87040; 87071; 87075; 87102; 87116; 87186; 87205; 87206; 93005; 93306; 99152; 99153; 99284; J0692; J1170; J2001; J2250; J2270; J2405; J2543; J3010; J7030; J7042; Q9967

== ENCOUNTER 2018-12-28 17:35 | Inpatient (IN) | payer MEDICARE ==
[~2018-12-28] VITALS: Ht 162.6 cm; Wt 65.8 kg
[~2018-12-28 17:35] MED LIST: CIPRO500 MG PO; FLAGYL500 MG; HUMULIN 70100 UNIT/1; TYLENOL WITH C1 EACH PO
[2018-12-28 18:33] LABS: BILIRUBIN,URINE SMALL (NEGATIVE); CLARITY,URINE SL CLOUDY (CLEAR); COLOR,URINE YELLOW (YELLOW); KETONES,URINE NEGATIVE (NEGATIVE); LEUKOCYTE ESTERASE ,URINE SMALL (NEGATIVE); NITRITE,URINE NEGATIVE (NEGATIVE); PROTEIN,URINE DIPSTICK 2+ (NEGATIVE); URINE UROBILINOGEN 0.2 mg/dL (0.2 - 1)
[2018-12-28 18:47] LABS: AMORPHOUS SEDIMENT,URINE MODERATE (FEW); BACTERIA,URINE MODERATE /HPF; CALCIUM OXALATE CRYSTALS,UR MODERATE (FEW); EPITHELIAL CELLS,URINE FEW /LPF; WBC,URINE (MAN) 0-5 /HPF (0-5)
[2018-12-28] MEDS ORDERED: DIATRIZOATE MEGL/DIATRIZOA SOD 30 ML BTL PO ONE ×2 (19:31→20:07)
[2018-12-28 20:25] LABS: BASOPHILS # (AUTO) 0.1 (0.0-0.1); BASOPHILS % 0.5 % (0.0-1.0); EOSINOPHILS # (AUTO) 0.4 (0.0-0.4); EOSINOPHILS % 2.2 % (0.0-6.0); HEMATOCRIT 42.7 % (34.2-44.1); HEMOGLOBIN 14.8 g/dL (12.0-16.0); LYMPHOCYTES # (AUTO) 5.4 (1.0-3.2); LYMPHOCYTES % 29.2 % (18.0-39.1); MEAN CORPUSCULAR HEMOGLOBIN 29.6 pg (28-32); MEAN CORPUSCULAR HGB CONC 34.7 g/dL (31-35); MEAN CORPUSCULAR VOLUME 85.4 fL (81-99); MONOCYTES # (AUTO) 1.7 (0.2-0.8); MONOCYTES % 9.4 % (4.4-11.3); NEUTROPHILS # (AUTO) 10.7 (2.1-6.9); NEUTROPHILS % 58.2 % (38.7-80.0); PLATELET COUNT 474 x10e3/uL (140-360); RED CELL DISTRIBUTION WIDTH 13.2 % (11.7-14.4)
[2018-12-28] MEDS: ONDANSETRON HCL INJ 2MG/ML 2ML 2 MG/ML VIAL IV STA ×2 (20:37→22:36)
[2018-12-28] MEDS: MORPHINE SULFATE INJ 4 MG/ML INJ 1ML IV ONE ×2 (20:37→22:36)
[2018-12-28 20:44] LABS: ALANINE AMINOTRANSFERASE 27 IU/L (0-55); ALBUMIN 3.5 g/dL (3.5-5.0); ALBUMIN/GLOBULIN RATIO 0.7 (0.8-2.0); ALKALINE PHOSPHATASE 89 IU/L (40-150); AMYLASE 31 U/L (25-125); ANION GAP 14.9 mmol/L (8-16); BLOOD UREA NITROGEN 13 mg/dL (7-26); BUN/CREATININE RATIO 19 (6-25); CALCIUM 9.5 mg/dL (8.4-10.2); CARBON DIOXIDE 23 mmol/L (22-29); CHLORIDE 99 mmol/L (98-107); EST GLOMERULAR FILTRATION RATE > 60 ML/MIN (60-); GLUCOSE 172 mg/dL (74-118); LIPASE 7 U/L (8-78); POTASSIUM 3.9 mmol/L (3.5-5.1); SODIUM 133 mmol/L (136-145)
[2018-12-28] MEDS ORDERED: IOPAMIDOL 370 MG/ML 200 ML INFUS..BTL INJ ONE (22:16)
[2018-12-28] MEDS ORDERED: SODIUM CHLORIDE 0.9% 50ML 50 ML ONE (22:16)
--- NOTE | 2018-12-28 22:35 | Diagnostic Imaging Report ---
EXAM: CT Abdomen and Pelvis WITH contrast INDICATION: Lower abdominal pain COMPARISON: Abdominal CT 10/16/2018; fluoroscopic sinogram 10/23/2018. TECHNIQUE: Abdomen and pelvis were scanned utilizing a multidetector helical scanner from the lung base to the pubic symphysis after administration of IV contrast. Coronal and sagittal reformations were obtained. Routine protocol was performed. Scan was performed when during portal venous phase. IV CONTRAST: 100 mL of Isovue 370 ORAL CONTRAST: Gastroview COMPLICATIONS: None RADIATION DOSE: Total DLP: 254 mGy*cm Estimated effective dose: (DLP x 0.015 x size factor) mSv CTDIvol has been reviewed. It is below the limits set by the Radiation Protocol Committee (RPC). Dose modulation, iterative reconstruction, and/or weight based adjustment of the mA/kV was utilized to reduce the radiation dose to as low as reasonably achievable. FINDINGS: LINES and TUBES: The percutaneous drain in the left lower abdomen has been removed. LOWER THORAX: Right basilar lateral lateral subpleural pulmonary scarring. HEPATOBILIARY: No focal hepatic lesions. No biliary ductal dilation. GALLBLADDER: No radio-opaque stones or sludge. No wall thickening. SPLEEN: No splenomegaly. PANCREAS: No focal masses or ductal dilatation. ADRENALS: An indeterminate soft tissue dense 1.8 cm nodule in the right adrenal gland (series 301 image 57). KIDNEYS/URETERS: Kidneys enhance symmetrically. No hydronephrosis. No cystic or solid mass lesions. No stones. GI TRACT: Enteric contrast has not reached the colon therefore communication of the abscess via sinus tract to the colon cannot be excluded. Sigmoid wall thickening and perisigmoid fat stranding. Inflammatory changes are contiguous from the inferior margin of the sigmoid colon to the abscess along the left bladder dome. Diverticula in the sigmoid colon. No abnormal distention or evidence of bowel obstruction. . Appendix is normal. PELVIC ORGANS/BLADDER: Calcified degenerative fibroid. Mural thickening of the bladder dome, contiguous with the fluid collection on the left superior bladder dome LYMPH NODES: No lymphadenopathy. VESSELS: There is moderate atherosclerotic disease in the aorta and major arterial branches. Soft and calcific atherosclerotic plaques in the abdominal aorta ulcerative plaques in the distal infrarenal abdominal aorta. No evidence of dissection or aneurysm. PERITONEUM / RETROPERITONEUM: A 4.5 x 2.2 cm peripherally enhancing central fluid dense collection along the left bladder dome contiguous with the inflammatory changes of the sigmoid colon. No free air or fluid. BONES: Degenerative changes in the spine. SOFT TISSUES: Fat stranding along a prior percutaneous drain tract in the lower anterior subcutaneous adipose extends through the thickened lower left rectus abdominis muscle towards the left lower pelvic fluid collection described above.. IMPRESSION: 1. Complicated sigmoid diverticulitis with a 4.5 cm abscess along the left superior bladder dome. The abscess was 5.6 cm on 10/16/2018. A sinus tract from the abscess to the colon is suspected although enteric contrast has not reached the colon therefore a communication tract cannot be confirmed. Reactive left superior bladder wall thickening. 2. An indeterminate 1.8 cm nodule in the right adrenal gland. Recommend abdominal CT adrenal mass protocol for further evaluation. 3. Right coronary calcific atherosclerosis. Signed by: Lamberto De La Vega DO on 12/28/2018 10:31 PM
[2018-12-28] MEDS ORDERED: METRONIDAZOLE 500MG/NS 100ML IV SCH (23:59)
[2018-12-29] MEDS: MORPHINE SULFATE INJ 4 MG/ML INJ 1ML IV PRN ×4 (00:30→12:33)
[2018-12-29] MEDS: ONDANSETRON HCL INJ 2MG/ML 2ML 2 MG/ML VIAL IV PRN ×4 (00:30→12:33)
[2018-12-29] MEDS ORDERED: METRONIDAZOLE 500MG/NS 100ML IV SCH (01:00)
--- NOTE | 2018-12-29 01:00 | NUR ---
PT PLACED ON HOSPITAL BED FOR COMFORT; RAILS UP X2, CALL LIGHT IN REACH; PT HAS NO COMPLAINTS AT THIS TIME
--- NOTE | 2018-12-29 01:18 | NUR ---
PLACED PT ON HOSPITAL BED FOR SAFETY AND COMFORT MEASURES.
[2018-12-29] MEDS ORDERED: ONDANSETRON HCL INJ 2MG/ML 2ML 2 MG/ML VIAL IV NR (07:00)
--- NOTE | 2018-12-29 07:00 | NUR ---
report to domingo kirk
--- NOTE | 2018-12-29 07:20 | NUR ---
Called Dr. Erika Velazquez for an order for phenergan as zofran is not working for the pt. Pt states that the morphine may be making her nauseated and she may need to have her pain meds changed to dilaudid. Pt states that zofran usually works for her nausea. Pt has vomited twice this morning green bile.
[2018-12-29 07:40] LABS: ALANINE AMINOTRANSFERASE 23 IU/L (0-55); ALBUMIN 3.1 g/dL (3.5-5.0); ALBUMIN/GLOBULIN RATIO 0.7 (0.8-2.0); ALKALINE PHOSPHATASE 78 IU/L (40-150); ANION GAP 11.8 mmol/L (8-16); BLOOD UREA NITROGEN 11 mg/dL (7-26); BUN/CREATININE RATIO 16 (6-25); CALCIUM 8.7 mg/dL (8.4-10.2); CARBON DIOXIDE 25 mmol/L (22-29); CHLORIDE 100 mmol/L (98-107); CREATININE, SERUM 0.68 mg/dL (0.57-1.11); EST GLOMERULAR FILTRATION RATE > 60 ML/MIN (60-); GLUCOSE 178 mg/dL (74-118); POTASSIUM 3.8 mmol/L (3.5-5.1); SODIUM 133 mmol/L (136-145)
[2018-12-29] MEDS: SODIUM CHLORIDE 0.9% 1000ML 1,000 ML IV SCH ×3 (07:45→18:09)
[2018-12-29] MEDS: METRONIDAZOLE 500MG/NS 100ML IV SCH ×3 (07:45→17:51)
[2018-12-29 07:47] LABS: BASOPHILS # (AUTO) 0.1 (0.0-0.1); BASOPHILS % 0.8 % (0.0-1.0); EOSINOPHILS # (AUTO) 0.4 (0.0-0.4); EOSINOPHILS % 2.8 % (0.0-6.0); HEMOGLOBIN 13.5 g/dL (12.0-16.0); LYMPHOCYTES # (AUTO) 3.9 (1.0-3.2); LYMPHOCYTES % 26.9 % (18.0-39.1); MEAN CORPUSCULAR HEMOGLOBIN 29.6 pg (28-32); MEAN CORPUSCULAR HGB CONC 33.8 g/dL (31-35); MEAN CORPUSCULAR VOLUME 87.7 fL (81-99); MONOCYTES # (AUTO) 1.4 (0.2-0.8); MONOCYTES % 9.9 % (4.4-11.3); NEUTROPHILS # (AUTO) 8.6 (2.1-6.9); NEUTROPHILS % 59.2 % (38.7-80.0); PLATELET COUNT 425 x10e3/uL (140-360); RED BLOOD COUNT 4.56 x10e6/uL (3.6-5.1); RED CELL DISTRIBUTION WIDTH 13.2 % (11.7-14.4)
--- NOTE | 2018-12-29 11:27 | NUR ---
Report to MARCI Jean
[2018-12-29 11:53] VITALS: BP 134/64
[2018-12-29 13:00] VITALS: BP 134/64
[2018-12-29 15:28] VITALS: BP 132/58
[2018-12-29 20:00] VITALS: BP 146/67
[2018-12-29 21:15] VITALS: BP 146/67
--- NOTE | 2018-12-29 21:15 | NUR ---
PATIENT IS AOX4, NO SIGNS OF DISTRESS NOTED. PATIENT VOICES NO PAIN AT THIS TIME, AND IS RELAXING IN BED. BED IS LOCKED AND LOW, BOTH SIDE RAILS ARE UP, CALL LIGHT WITHIN REACH, WILL CONTINUE TO MONITOR.
[2018-12-29] MEDS: LEVOFLOXACIN 500MG/D5W 100ML IV SCH ×2 (22:31)
[2018-12-30] VITALS (8 sets, daily range): BP systolic 135–157; BP diastolic 64–76
--- NOTE | 2018-12-30 00:15 | NUR ---
PATIENT FELT NAUSEOUS AND HAD GREEN COLORED VOMIT. BLOOD PRESSURE READ 202/88, PAGED DR. Abdullahi MCALLISTER REGARDING THE BLOOD PRESSURE, AWAITING CALL BACK. PATIENT VOICED THAT SHE FELT BETTER AFTER VOMITING AND WAS MEDICATED FOR PAIN AND NAUSEA. RECHECKED BLOOD PRESSURE 30 MINUTES LATER AND IT WAS 137/75. NO SIGNS OF DISTRESS, WILL CONTINUE TO MONITOR.
[2018-12-30] MEDS: MORPHINE SULFATE INJ 4 MG/ML INJ 1ML IV PRN ×6 (00:20→23:03)
[2018-12-30] MEDS: ONDANSETRON HCL INJ 2MG/ML 2ML 2 MG/ML VIAL IV PRN ×5 (00:20→23:03)
[2018-12-30] MEDS: METRONIDAZOLE 500MG/NS 100ML IV SCH ×4 (00:20→17:36)
--- NOTE | 2018-12-30 04:00 | NUR ---
PATIENT VOMITED GREEN COLORED SUBSTANCE AGAIN. VOICED THAT SHE IS FELT BETTER AFTER VOMITING, NO DISTRESS NOTED, WILL CONTINUE TO MONITOR.
[2018-12-30] MEDS: SODIUM CHLORIDE 0.9% 1000ML 1,000 ML IV SCH ×2 (04:31→22:45)
[2018-12-30 06:11] LABS: BASOPHILS # (AUTO) 0.1 (0.0-0.1); BASOPHILS % 0.5 % (0.0-1.0); EOSINOPHILS # (AUTO) 0.2 (0.0-0.4); EOSINOPHILS % 1.6 % (0.0-6.0); HEMATOCRIT 38.4 % (34.2-44.1); HEMOGLOBIN 12.6 g/dL (12.0-16.0); LYMPHOCYTES # (AUTO) 2.9 (1.0-3.2); LYMPHOCYTES % 21.4 % (18.0-39.1); MEAN CORPUSCULAR HEMOGLOBIN 29.2 pg (28-32); MEAN CORPUSCULAR HGB CONC 32.8 g/dL (31-35); MEAN CORPUSCULAR VOLUME 89.1 fL (81-99); MONOCYTES # (AUTO) 1.2 (0.2-0.8); MONOCYTES % 8.6 % (4.4-11.3); NEUTROPHILS % 67.5 % (38.7-80.0); PLATELET COUNT 385 x10e3/uL (140-360); RED BLOOD COUNT 4.31 x10e6/uL (3.6-5.1)
[2018-12-30 06:32] LABS: ALANINE AMINOTRANSFERASE 24 IU/L (0-55); ALBUMIN/GLOBULIN RATIO 0.8 (0.8-2.0); ANION GAP 14.2 mmol/L (8-16); BLOOD UREA NITROGEN 8 mg/dL (7-26); BUN/CREATININE RATIO 12 (6-25); CALCIUM 8.5 mg/dL (8.4-10.2); CARBON DIOXIDE 23 mmol/L (22-29); CHLORIDE 103 mmol/L (98-107); CREATININE, SERUM 0.65 mg/dL (0.57-1.11); EST GLOMERULAR FILTRATION RATE > 60 ML/MIN (60-); GLUCOSE 136 mg/dL (74-118); POTASSIUM 4.2 mmol/L (3.5-5.1); SODIUM 136 mmol/L (136-145)
--- NOTE | 2018-12-30 07:06 | NUR ---
RECEIVED REPORT FROM OFF GOING NURSE. WALKING ROUNDS DONE. PATIENT IS RESTING IN BED. NO ACUTE DISTRESS NOTED. CALL LIGHT WITHIN REACH. BED IN THE LOWEST POSITION.
[2018-12-30 08:48] LABS: ALKALINE PHOSPHATASE 67 IU/L (40-150)
--- NOTE | 2018-12-30 14:55 | Diagnostic Imaging Report ---
EXAMINATION: CHEST SINGLE (PORTABLE) INDICATION: ^COPD ^[id number] ^1405 ^Y COMPARISON: CT abdomen and pelvis 12/28/2018 FINDINGS: AP view TUBES and LINES: None. LUNGS: Lungs are well inflated. Stable minimal scarring in the right lower lobe. There is no evidence of pneumonia or pulmonary edema. PLEURA: No pleural effusion or pneumothorax. HEART AND MEDIASTINUM: The cardiomediastinal silhouette is unremarkable.. BONES AND SOFT TISSUES: No acute osseous lesion. Soft tissues are unremarkable. UPPER ABDOMEN: No free air under the diaphragm. IMPRESSION: No acute thoracic abnormality. Signed by: Dr. Brionna Howell M.D. on 12/30/2018 2:52 PM
--- NOTE | 2018-12-30 19:30 | NUR ---
Report given to oncoming nurse. Walking rounds done. Patient is resting in bed. No acute distress noted. No s/s of pain noted at this time. Call light within reach. Bed in the lowest position.
--- NOTE | 2018-12-30 20:11 | NUR ---
RECEIVED PT IN BED AOX3 .DENIES PAIN .RESPIRATIONS ARE EVEN AND UNLABORED .RT FA 20G NS AT 5OCC/HR .CALL LIGHT WITH IN REACH .CONTINUE TO MONITOR
[2018-12-30] MEDS: LEVOFLOXACIN 500MG/D5W 100ML IV SCH (22:45)
[2018-12-31] VITALS (9 sets, daily range): BP systolic 123–172; BP diastolic 62–90
[2018-12-31] MEDS: SODIUM CHLORIDE 0.9% 1000ML 1,000 ML IV SCH (05:33)
[2018-12-31] MEDS: METRONIDAZOLE 500MG/NS 100ML IV SCH ×4 (06:00→17:33)
--- NOTE | 2018-12-31 06:56 | NUR ---
RECEIVED PATIENT RESTING IN BED. RESPIRATIONS EVEN AND UNLABORED, NO ACUTE DISTRESS NOTED. CALL LIGHT WITHIN REACH. BED IN THE LOWEST POSITION.
--- NOTE | 2018-12-31 07:26 | NUR ---
PT C/O PAIN GIVEN MORPHINE AND ZOFRAN .NO ACUTE DISTRESS NOTED .CALL LIGHT WITH IN REACH .BEDSIDE REPORT GIVEN TO THE ONCOMING NURSE
[2018-12-31 07:40] LABS: BASOPHILS # (AUTO) 0.1 (0.0-0.1); BASOPHILS % 0.6 % (0.0-1.0); EOSINOPHILS # (AUTO) 0.3 (0.0-0.4); EOSINOPHILS % 1.9 % (0.0-6.0); HEMATOCRIT 40.5 % (34.2-44.1); HEMOGLOBIN 13.5 g/dL (12.0-16.0); LYMPHOCYTES # (AUTO) 2.7 (1.0-3.2); LYMPHOCYTES % 19.9 % (18.0-39.1); MEAN CORPUSCULAR HEMOGLOBIN 29.2 pg (28-32); MEAN CORPUSCULAR HGB CONC 33.3 g/dL (31-35); MEAN CORPUSCULAR VOLUME 87.5 fL (81-99); MONOCYTES # (AUTO) 1.1 (0.2-0.8); MONOCYTES % 7.8 % (4.4-11.3); NEUTROPHILS # (AUTO) 9.3 (2.1-6.9); PLATELET COUNT 428 x10e3/uL (140-360); RED BLOOD COUNT 4.63 x10e6/uL (3.6-5.1)
[2018-12-31 08:04] LABS: BLOOD UREA NITROGEN 5 mg/dL (7-26); BUN/CREATININE RATIO 9 (6-25); CALCIUM 8.9 mg/dL (8.4-10.2); CARBON DIOXIDE 24 mmol/L (22-29); CHLORIDE 102 mmol/L (98-107); CREATININE, SERUM 0.58 mg/dL (0.57-1.11); EST GLOMERULAR FILTRATION RATE > 60 ML/MIN (60-); GLUCOSE 134 mg/dL (74-118); SODIUM 137 mmol/L (136-145)
[2018-12-31] MEDS: MORPHINE SULFATE INJ 4 MG/ML INJ 1ML IV PRN ×3 (10:20→23:14)
[2018-12-31] MEDS: ONDANSETRON HCL INJ 2MG/ML 2ML 2 MG/ML VIAL IV PRN (10:20)
[2018-12-31] MEDS ORDERED: PANTOPRAZOLE SOD 40 MG TABEC PO NR (12:45)
[2018-12-31] MEDS ORDERED: PROMETHAZINE 25MG/ NS 50ML (IV) IV PRN (12:45)
--- NOTE | 2018-12-31 19:22 | NUR ---
REPORT GIVEN TO ONCOMING NURSE. WALKING ROUNDS DONE. PATIENT IS RESTING IN BED. NO ACUTE DISTRESS NOTED. CALL LIGHT WITHIN REACH. BED IN THE LOWEST POSITION.
[2018-12-31] MEDS ORDERED: MAGNESIUM HYDROXIDE 30 ML UDC PO NR (21:00)
[2018-12-31] MEDS: LEVOFLOXACIN 500MG/D5W 100ML IV SCH (23:14)
[2019-01-01] VITALS (8 sets, daily range): BP systolic 126–146; BP diastolic 59–69
--- NOTE | 2019-01-01 01:14 | NUR ---
PATIENTS STATES SHE HAD A BOWEL MOVEMENT. IT WAS WATERY AND WITH CHUNKS OF SOLID STOOL.
[2019-01-01] MEDS: MORPHINE SULFATE INJ 4 MG/ML INJ 1ML IV PRN ×5 (04:00→22:48)
[2019-01-01] MEDS: METRONIDAZOLE 500MG/NS 100ML IV SCH ×5 (05:39→23:46)
[2019-01-01 06:21] LABS: BASOPHILS # (AUTO) 0.1 (0.0-0.1); BASOPHILS % 0.7 % (0.0-1.0); EOSINOPHILS # (AUTO) 0.4 (0.0-0.4); EOSINOPHILS % 3.1 % (0.0-6.0); HEMOGLOBIN 13.5 g/dL (12.0-16.0); LYMPHOCYTES # (AUTO) 3.6 (1.0-3.2); LYMPHOCYTES % 30.1 % (18.0-39.1); MEAN CORPUSCULAR HEMOGLOBIN 29.5 pg (28-32); MEAN CORPUSCULAR HGB CONC 33.8 g/dL (31-35); MEAN CORPUSCULAR VOLUME 87.5 fL (81-99); MONOCYTES # (AUTO) 1.3 (0.2-0.8); MONOCYTES % 10.6 % (4.4-11.3); NEUTROPHILS # (AUTO) 6.6 (2.1-6.9); NEUTROPHILS % 54.9 % (38.7-80.0); PLATELET COUNT 414 x10e3/uL (140-360); RED BLOOD COUNT 4.57 x10e6/uL (3.6-5.1)
[2019-01-01 06:43] LABS: ANION GAP 14.8 mmol/L (8-16); BLOOD UREA NITROGEN 6 mg/dL (7-26); BUN/CREATININE RATIO 9 (6-25); CALCIUM 8.8 mg/dL (8.4-10.2); CARBON DIOXIDE 26 mmol/L (22-29); CHLORIDE 101 mmol/L (98-107); CREATININE, SERUM 0.65 mg/dL (0.57-1.11); EST GLOMERULAR FILTRATION RATE > 60 ML/MIN (60-); GLUCOSE 106 mg/dL (74-118); POTASSIUM 3.8 mmol/L (3.5-5.1); SODIUM 138 mmol/L (136-145)
[2019-01-01] MEDS: PANTOPRAZOLE SOD 40 MG TABEC PO SCH (08:25)
[2019-01-01] MEDS ORDERED: MAGNESIUM HYDROXIDE 30 ML UDC PO ONE (21:00)
[2019-01-01] MEDS: LEVOFLOXACIN 500MG/D5W 100ML IV SCH (22:48)
[2019-01-02] VITALS (7 sets, daily range): BP systolic 143–195; BP diastolic 66–82
[2019-01-02] MEDS: METRONIDAZOLE 500MG/NS 100ML IV SCH ×3 (05:29→18:17)
--- NOTE | 2019-01-02 06:14 | NUR ---
PATIENT HAD A BOWEL MOVEMENT 3X WITH GREENISH WATERY STOOL WITH SOME PARTICLES.
--- NOTE | 2019-01-02 07:26 | NUR ---
PATIENT ASSISTED TO THE RESTROOM AND BACK TO BED. HAD A LOOSE STOOL. BED IN LOWER POSITION, CALL LIGHT AT REACH.
[2019-01-02] MEDS: PANTOPRAZOLE SOD 40 MG TABEC PO SCH (08:05)
[2019-01-02] MEDS: MORPHINE SULFATE INJ 4 MG/ML INJ 1ML IV PRN ×4 (09:28→22:45)
--- NOTE | 2019-01-02 11:27 | NUR ---
PATIENT AMBULATING IN HALLWAY, NO COMPLAIN VOICED. WILL CLOSELY MONITOR.
--- NOTE | 2019-01-02 15:37 | NUR ---
Nutrition Intervention Note RD Recommendation(s) for Physician: - ADAT to goal of GI Soft, 1800 ADA - Recommend Glucerna Shake BID when diet advanced - If unable to advance diet soon, consider parenteral nutrition- consult Nutrition for recommendations Plan of Care: RD following, diet and ONS rec's, monitoring for tolerance and adequacy Nutrition reason for involvement: Nutrition Risk Trigger- NPO/CL x [address] Assessment 01/02: 68 YOF admitted for diverticulitis of the large intestine, pt seen today per diet screen- NPO/Cl diet x 5 days. Pt discussed during am rounds. 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 Pt reports UBW of 140-150#, no wt loss noted. Pt reports some N/V today 2/2 meds and fruit ice being too sweet to tolerance on an empty stomach. Pt reports varying tolerance of CL diet currently, states significant taste changes 2/2 abx currently. Per pt plan for surgery tomorrow- partial colectomy with colostomy placement. Will monitor and continue to follow. Principal Problems/Diagnoses: Diverticulitis of large intestine PMH: Diverticulosis, DM2 GI: 01/02, +N/V Skin: intact Labs: 01/02: Na 138, K 3.8, BUN 6, Cr 0.65, Gluc 106 Meds: morphine, flagyl, protonix, levaquin Ht: 64 in Wt: 145 lb BMI: 24.9 IBW: 120 lb Malnutrition Evaluation (01/02/19) The patient does not meet criteria for a specified degree of malnutrition at this time. Will re-evaluate at follow-up as appropriate. Energy intake: <50% of estimated energy requirements for >5 days Weight loss: No wt loss Fat loss: none, art skinfold ample Muscle loss: none, clavicle not visible Supporting Evidence: Fluid accumulation: none observed Functional Status: no changes per pt Nutrition Prescription (Diet Order): Clear liquids Estimated Nutritional Needs: 7018-6519 calories/day (25-30 kcal/kg CBW) 66-99 g protein/day (1-1.5 g pro/kg CBW) Diet Adequacy: Not meeting calorie needs, Not meeting protein needs Diet Tolerance: Tolerance varies Diet Education Needs Assessment: Diet education not indicated, patient on temporary/transition diet. Nutrition Care Level: High- NPO/CL x 5 days Nutrition Diagnosis: Inadequate energy and protein intake related to diverticulitis as evidenced by pt pending surgical intervention, remains on CL diet, and not meeting needs. Goal: Patient will meet 75-100% of estimated needs by follow up Progress: N/A Interventions: CHO, fiber modified diet, Commercial beverage, Recommended Modifications, Collaboration with other providers Monitoring/Evaluation: Total energy intake, Total protein intake, Modified diet, Liquid supplement Signed: Archana Barboza RD, [place], [facility]
--- NOTE | 2019-01-02 17:08 | NUR ---
PATIENT OUT OF BED TO CHAIR TALKING TO FAMILY MEMBERS VISITING. CALL LIGHT AT REACH.
--- NOTE | 2019-01-02 19:15 | NUR ---
patient received awake, alert, lying quietly in bed. no c/o pain noted. patient npo for surgery after midnight. patient verbalizes understanding of this. pm assessment complete. patient instructed to call for assistance when needed.
[2019-01-02] MEDS ORDERED: MAGNESIUM HYDROXIDE 30 ML UDC PO ONE (21:00)
--- NOTE | 2019-01-02 22:45 | NUR ---
patient medicated with morphine 4mg ivp for c/o abd pain 10/04 at this time per request.
[2019-01-02] MEDS: LEVOFLOXACIN 500MG/D5W 100ML IV SCH (22:57)
[2019-01-03] VITALS (13 sets, daily range): BP systolic 118–173; BP diastolic 65–84
[2019-01-03] MEDS: MORPHINE SULFATE INJ 4 MG/ML INJ 1ML IV PRN ×2 (02:50→07:20)
--- NOTE | 2019-01-03 02:50 | NUR ---
patient medicated with morphine 4mg ivp for c/o abd pain 10/04 at this time per patients request.
[2019-01-03] MEDS: METRONIDAZOLE 500MG/NS 100ML IV SCH ×4 (06:00→19:10)
--- NOTE | 2019-01-03 07:20 | NUR ---
PATIENT C/O PAIN AND WAS MEDICATED ORDERED. WILL CLOSELY MONITOR.
[2019-01-03] MEDS: PANTOPRAZOLE SOD 40 MG TABEC PO SCH (07:30)
--- NOTE | 2019-01-03 11:44 | NUR ---
CALL RECEIVED FROM ER STATING THAT PATIENT WILL BE PICKED UP SOON. PATIENT NOTIFIED WITH PLAN OF CARE. IN BED WITH CALL LIGHT AT REACH.
--- NOTE | 2019-01-03 12:41 | NUR ---
PATIENT OFF UNIT TO OR.
[2019-01-03] MEDS ORDERED: FENTANYL CITRATE/PF 100MCG/2 ML INJ ONE (14:54)
[2019-01-03] MEDS ORDERED: MORPHINE SULFATE INJ 10 MG/ML ONE (14:54)
[2019-01-03] MEDS ORDERED: MIDAZOLAM HCL 2 MG/2 ML VIAL ONE (14:54)
[2019-01-03] MEDS ORDERED: ACETAMINOPHEN 1000 MG/100 ML 100 ML IV ONE (15:01)
[2019-01-03] MEDS: SODIUM CHLORIDE 0.9% 250ML IRRIG IR SCH ×2 (16:30→21:08)
[2019-01-03] MEDS ORDERED: HYDROMORPHONE 0.2MG/ML-SOD CHL 30ML PCA SYRINGE IV PRN (16:30)
[2019-01-03] MEDS ORDERED: ACETAMINOPHEN 1000 MG/100 ML IV PRN (16:30)
[2019-01-03] MEDS ORDERED: NALOXONE HCL INJ 0.4 MG/ML AMP IV PRN (16:30)
[2019-01-03] MEDS ORDERED: PIPER-TAZ 3.375 GM 50 ML IV SCH (18:00)
[2019-01-03] MEDS ORDERED: NEOSTIGMINE 5 MG/5ML SYR ONE (18:34)
[2019-01-03] MEDS ORDERED: PROPOFOL IV EMULSION 10 MG/ML 20 ML VIAL ONE (18:34)
[2019-01-03] MEDS ORDERED: ROCURONIUM BROMIDE 10 MG/ML 5ML VIAL ONE (18:34)
[2019-01-03] MEDS ORDERED: SEVOFLURANE INHAL SOLN 250 ML PEN BTL ONE (18:34)
[2019-01-03] MEDS ORDERED: PHENYLEPHRINE HCL 1% 10 MG/ML VIAL ONE (18:34)
[2019-01-03] MEDS ORDERED: ONDANSETRON HCL INJ 2MG/ML 2ML 2 MG/ML VIAL ONE (18:34)
[2019-01-03] MEDS ORDERED: GLYCOPYRROLATE INJ 1MG/ 5 ML SYR ONE (18:34)
[2019-01-03] MEDS ORDERED: LIDOCAINE HCL 2% LOCAL INJ 5 ML SDV VIAL INJ ONE (18:34)
[2019-01-03] MEDS ORDERED: SODIUM CHLORIDE 0.9% 250ML 250 ML ONE (19:09)
[2019-01-03] MEDS: DEXTROSE 5%/LACTATED RINGERS 1,000 ML IV SCH (19:10)
--- NOTE | 2019-01-03 19:19 | Operative Report ---
DATE OF PROCEDURE: 01/03/2019 SURGEON: Philippe Waterman MD PREOPERATIVE DIAGNOSIS: Perforated diverticulitis with pelvic abscess. POSTOPERATIVE DIAGNOSIS: Perforated diverticulitis with pelvic abscess. OPERATIONS PERFORMED: Exploratory laparotomy, sigmoid colon resection, and colostomy with Rajni pouch and drainage of pelvic abscess. LANDING SIGNAL OFFICER: Pacheco Waterman MD. ANESTHESIA: General endotracheal. COMPLICATIONS: None. ESTIMATED BLOOD LOSS: 200 mL. DESCRIPTION OF PROCEDURE: With the patient lying in bed in the supine position, under good general endotracheal anesthesia, the abdomen was prepped with Betadine solution and draped in the usual manner. A lower midline incision was made, was carried down through the subcutaneous tissue down to the midline fascia. The midline fascia was opened. The peritoneum was opened and the abdomen was entered. Upon entering the abdominal cavity, immediately a hard mass was encountered in the pelvis where the sigmoid colon was totally plastered up to the bladder and the anterior abdominal wall. The rest of the abdominal exploration also showed some loops of small bowel that was stuck to the inflammatory mass in the pelvis. There was no other abnormalities palpable in the intraabdominal cavity other than a firm nodular liver. The left colon that could be visualized was then mobilized off the lateral gutter and divided with an application of the FRACISCO-75 stapler at the level of the junction of the sigmoid and descending colon. Once this was done, the mesentery of the upper colon was then divided with the EnSeal device. The left colon was then slowly and carefully mobilized off the lateral gutter and the left ureter was identified and preserved. After this was done, the small bowel was then sharply from the inflammatory mass in the pelvis and the adhesions to the small bowel were slowly and carefully lysed, and we then could take all the bowel out of the pelvis except for the sigmoid colon that was totally plastered anteriorly. After this was done, the distal sigmoid colon was then identified and divided with an application of FRACISCO-75 stapler. The colon was then slowly and carefully from the bladder and finally an abscess cavity was entered. There was grossly purulent material, which was all aspirated. After this was done, the rest of the sigmoid colon was then from the anterior abdominal wall and the bladder, and sent for pathological examination. Once this was completed, the whole area was then thoroughly irrigated. Perfect hemostasis was ascertained. No definite perforation into the bladder was identified. This was what appeared to be an abscess into the peritoneum and external to the bladder itself. The whole area was then plicated with 2-0 Vicryl. The proximal colon had been well mobilized at this point and was clear to brief brought out for colostomy. A nipple of skin was then removed from the left mid abdomen and a cruciate incision was carried down through the rectus sheath, and the abdomen was entered, and the colon was brought out skin through the colostomy site without any tension or difficulty. The abdomen was then copiously irrigated. Perfect hemostasis was ascertained. A 10 flat Thony-Beltrán was then brought out through the right lower quadrant and placed in the pelvis, and sutured to the skin with 2-0 silk. The peritoneum was closed with a running suture of #1 Vicryl. The midline fascia was closed with a running suture of #1 Vicryl. Subcutaneous tissue was approximated with 2-0 chromic and the skin was closed with clips. The colostomy was then matured using interrupted sutures of 3-0 Vicryl. The colostomy appliance and dressings were applied. The sponge, lap, and needle count was correct. The patient tolerated the procedure well and returned to the recovery room in stable condition. MD KEISHA Steward/EVA /[id number]
[2019-01-04] VITALS (22 sets, daily range): BP systolic 117–152; BP diastolic 57–94
[2019-01-04] MEDS: SODIUM CHLORIDE 0.9% 250ML IRRIG IR SCH ×6 (00:31→20:33)
[2019-01-04] MEDS: METRONIDAZOLE 500MG/NS 100ML IV SCH ×4 (00:47→17:58)
[2019-01-04] MEDS: PIPER-TAZ 3.375 GM 50 ML IV SCH ×4 (03:30→20:41)
[2019-01-04] MEDS: DEXTROSE 5%/LACTATED RINGERS 1,000 ML IV SCH ×3 (04:21→15:23)
[2019-01-04] MEDS ORDERED: SODIUM CHLORIDE 0.9% 250ML 250 ML ONE (05:17)
[2019-01-04 05:31] LABS: BASOPHILS # (AUTO) 0.1 (0.0-0.1); BASOPHILS % 0.4 % (0.0-1.0); EOSINOPHILS % 0.1 % (0.0-6.0); HEMATOCRIT 37.4 % (34.2-44.1); HEMOGLOBIN 12.1 g/dL (12.0-16.0); LYMPHOCYTES # (AUTO) 2.5 (1.0-3.2); LYMPHOCYTES % 17.1 % (18.0-39.1); MEAN CORPUSCULAR HEMOGLOBIN 28.8 pg (28-32); MEAN CORPUSCULAR HGB CONC 32.4 g/dL (31-35); MONOCYTES # (AUTO) 2.1 (0.2-0.8); MONOCYTES % 14.2 % (4.4-11.3); NEUTROPHILS % 67.7 % (38.7-80.0); PLATELET COUNT 476 x10e3/uL (140-360); RED CELL DISTRIBUTION WIDTH 13.8 % (11.7-14.4)
[2019-01-04 05:54] LABS: ANION GAP 11.5 mmol/L (8-16); BLOOD UREA NITROGEN 5 mg/dL (7-26); BUN/CREATININE RATIO 8 (6-25); CARBON DIOXIDE 25 mmol/L (22-29); CHLORIDE 107 mmol/L (98-107); EST GLOMERULAR FILTRATION RATE > 60 ML/MIN (60-); GLUCOSE 261 mg/dL (74-118); POTASSIUM 3.5 mmol/L (3.5-5.1); SODIUM 140 mmol/L (136-145)
[2019-01-04] MEDS: PANTOPRAZOLE SOD 40 MG TABEC PO SCH (07:30)
[2019-01-04] MEDS ORDERED: HYDROMORPHONE 0.2MG/ML-SOD CHL 30ML PCA SYRINGE IV PRN (13:15)
--- NOTE | 2019-01-04 14:18 | NUR ---
Nutrition Intervention Note RD Recommendation(s) for Physician: - ADAT to goal of GI Soft, 1800 ADA - Recommend Glucerna Shake BID when diet advanced - If unable to advance diet soon, consider parenteral nutrition- consult Nutrition for recommendations Plan of Care: RD following, diet and ONS rec's, monitoring for tolerance and adequacy Nutrition reason for involvement: Follow up, remains NPO RD Assessment 01/04: Pt POD#1 for ex- lap with colostomy placement 2/[address] with 100 ml output at time of visit, pt resting and no family present. Pt discussed during am rounds. Chart reviewed. Current rec's remain appropriate. Will monitor and continue to follow. 01/02: 68 YOF admitted for diverticulitis of the large intestine, pt seen today per diet screen- NPO/Cl diet x 5 days. Pt discussed during am rounds. Pt reports good appetite and po intake [employer]. Pt reports UBW of 140-150#, no wt loss noted. Pt reports some N/V today 2/2 meds and fruit ice being too sweet to tolerance on an empty stomach. Pt reports varying tolerance of CL diet currently, states significant taste changes 2/2 abx currently. Per pt plan for surgery tomorrow- partial colectomy with colostomy placement. Will monitor and continue to follow. Principal Problems/Diagnoses: Diverticulitis of large intestine PMH: Diverticulosis, DM2 GI: LBM 01/03 x 2; +N/V 01/02 Skin: abdominal incision Labs: 01/04: Na 140, K 3.5, BUN 5, Cr 0.6, Gluc 261, POC Gluc 158- 265 01/02: Na 138, K 3.8, BUN 6, Cr 0.65, Gluc 106 Meds: morphine, flagyl, protonix, abx, dilaudid Ht: 64 in Wt: 145 lb BMI: 24.9 IBW: 120 lb Malnutrition Evaluation (01/02/19) The patient does not meet criteria for a specified degree of malnutrition at this time. Will re-evaluate at follow-up as appropriate. Energy intake: <50% of estimated energy requirements for >5 days Weight loss: No wt loss Fat loss: none, art skinfold ample Muscle loss: none, clavicle not visible Supporting Evidence: Fluid accumulation: none observed Functional Status: no changes per pt Nutrition Prescription (Diet Order): NPO Estimated Nutritional Needs: 9047-1002 calories/day (25-30 kcal/kg CBW) 66-99 g protein/day (1-1.5 g pro/kg CBW) Diet Adequacy: Not meeting calorie needs, Not meeting protein needs Diet Tolerance: Tolerance varies Diet Education Needs Assessment: Diet education not indicated, patient on temporary/transition diet. Nutrition Care Level: High- NPO/CL x 7 days Nutrition Diagnosis: Inadequate energy and protein intake related to diverticulitis as evidenced by pt pending surgical intervention, remains on CL diet, and not meeting needs. Goal: Patient will meet 75-100% of estimated needs by follow up Progress: N/A Interventions: CHO, fiber modified diet, Commercial beverage, Recommended Modifications, Collaboration with other providers Monitoring/Evaluation: Total energy intake, Total protein intake, Modified diet, Liquid supplement Signed: Archana Barboza RD, LD, [facility]
--- NOTE | 2019-01-04 14:45 | NUR ---
PATIENT ASSISTED OUT OF TO CHAIR.
--- NOTE | 2019-01-04 15:37 | NUR ---
REMINDED PATIENT TO USE I.S.
[2019-01-04] MEDS ORDERED: HYDROMORPHONE 0.2MG/ML-SOD CHL 30ML PCA SYRINGE IV ONE (21:28)
[2019-01-05] VITALS (25 sets, daily range): BP systolic 115–159; BP diastolic 36–88
[2019-01-05] MEDS: SODIUM CHLORIDE 0.9% 250ML IRRIG IR SCH ×6 (01:02→21:07)
[2019-01-05] MEDS: PIPER-TAZ 3.375 GM 50 ML IV SCH ×4 (03:23→21:07)
[2019-01-05] MEDS: DEXTROSE 5%/LACTATED RINGERS 1,000 ML IV SCH ×3 (03:23→16:18)
[2019-01-05 05:23] LABS: BASOPHILS # (AUTO) 0.1 (0.0-0.1); BASOPHILS % 0.4 % (0.0-1.0); EOSINOPHILS % 0.2 % (0.0-6.0); HEMATOCRIT 29.7 % (34.2-44.1); HEMOGLOBIN 9.9 g/dL (12.0-16.0); LYMPHOCYTES # (AUTO) 2.9 (1.0-3.2); LYMPHOCYTES % 17.6 % (18.0-39.1); MEAN CORPUSCULAR HEMOGLOBIN 29.4 pg (28-32); MEAN CORPUSCULAR HGB CONC 33.3 g/dL (31-35); MEAN CORPUSCULAR VOLUME 88.1 fL (81-99); MONOCYTES # (AUTO) 1.8 (0.2-0.8); MONOCYTES % 11.4 % (4.4-11.3); NEUTROPHILS # (AUTO) 11.3 (2.1-6.9); NEUTROPHILS % 69.5 % (38.7-80.0); PLATELET COUNT 387 x10e3/uL (140-360); RED BLOOD COUNT 3.37 x10e6/uL (3.6-5.1); RED CELL DISTRIBUTION WIDTH 13.9 % (11.7-14.4)
[2019-01-05 05:46] LABS: ANION GAP 10.6 mmol/L (8-16); BLOOD UREA NITROGEN < 5 mg/dL (7-26); BUN/CREATININE RATIO 9 (6-25); CARBON DIOXIDE 29 mmol/L (22-29); CHLORIDE 105 mmol/L (98-107); CREATININE, SERUM 0.55 mg/dL (0.57-1.11); EST GLOMERULAR FILTRATION RATE > 60 ML/MIN (60-); GLUCOSE 281 mg/dL (74-118); SODIUM 142 mmol/L (136-145)
[2019-01-05 05:47] LABS: POTASSIUM 2.6 mmol/L (3.5-5.1)
--- NOTE | 2019-01-05 05:57 | NUR ---
Dr. Aden Waterman paged regarding critical potassium of 2.6, ordered to give 40meq in 1 liter, @ 100 ml/hr. Order put in, will have to wait for pharmacy to arrive.
[2019-01-05] MEDS: METRONIDAZOLE 500MG/NS 100ML IV SCH ×5 (06:01→23:44)
[2019-01-05] MEDS: PANTOPRAZOLE SOD 40 MG TABEC PO SCH (07:14)
[2019-01-05] MEDS ORDERED: POTASSIUM CHLORIDE 40 MEQ in SODIUM CHLORIDE 0.9% 1000ML 1,000 ML IV ONE (08:00)
[2019-01-05] MEDS ORDERED: POTASSIUM CHLORIDE 20MEQ/100ML 100 ML IV ONE (09:35)
--- NOTE | 2019-01-05 16:40 | NUR ---
ROUNDING AT THIS TIME, PT OKAY TO DOWNGRADE TO MEDSUR ASKED BOUT DIET AND NGT PER MD MAYBE ONE MORE. WILL CONTINUE TO MONITOR
[2019-01-06] VITALS (17 sets, daily range): BP systolic 136–178; BP diastolic 61–86
[2019-01-06] MEDS: SODIUM CHLORIDE 0.9% 250ML IRRIG IR SCH ×4 (01:37→13:12)
[2019-01-06] MEDS: PIPER-TAZ 3.375 GM 50 ML IV SCH ×4 (02:35→21:08)
[2019-01-06] MEDS: METRONIDAZOLE 500MG/NS 100ML IV SCH ×3 (05:12→18:11)
[2019-01-06 05:19] LABS: BASOPHILS # (AUTO) 0.1 (0.0-0.1); BASOPHILS % 0.6 % (0.0-1.0); EOSINOPHILS # (AUTO) 0.3 (0.0-0.4); EOSINOPHILS % 2.1 % (0.0-6.0); HEMATOCRIT 31.8 % (34.2-44.1); HEMOGLOBIN 10.3 g/dL (12.0-16.0); LYMPHOCYTES # (AUTO) 4.4 (1.0-3.2); MEAN CORPUSCULAR HEMOGLOBIN 29.1 pg (28-32); MEAN CORPUSCULAR HGB CONC 32.4 g/dL (31-35); MEAN CORPUSCULAR VOLUME 89.8 fL (81-99); MONOCYTES # (AUTO) 1.3 (0.2-0.8); NEUTROPHILS # (AUTO) 10.1 (2.1-6.9); NEUTROPHILS % 61.6 % (38.7-80.0); PLATELET COUNT 422 x10e3/uL (140-360); RED BLOOD COUNT 3.54 x10e6/uL (3.6-5.1); RED CELL DISTRIBUTION WIDTH 13.8 % (11.7-14.4)
[2019-01-06 05:43] LABS: ANION GAP 11.3 mmol/L (8-16); BLOOD UREA NITROGEN < 5 mg/dL (7-26); CALCIUM 8.3 mg/dL (8.4-10.2); CARBON DIOXIDE 30 mmol/L (22-29); CHLORIDE 102 mmol/L (98-107); CREATININE, SERUM 0.57 mg/dL (0.57-1.11); EST GLOMERULAR FILTRATION RATE > 60 ML/MIN (60-); GLUCOSE 233 mg/dL (74-118); POTASSIUM 3.3 mmol/L (3.5-5.1); SODIUM 140 mmol/L (136-145)
[2019-01-06 05:44] LABS: BUN/CREATININE RATIO 9 (6-25)
--- NOTE | 2019-01-06 07:02 | NUR ---
Report given to oncoming MARCI Cheng,walking round one.
[2019-01-06] MEDS: PANTOPRAZOLE SOD 40 MG TABEC PO SCH (07:14)
[2019-01-06] MEDS: DEXTROSE 5%/LACTATED RINGERS 1,000 ML IV SCH ×3 (07:32→17:04)
--- NOTE | 2019-01-06 13:22 | NUR ---
Nutrition Follow up note Visited Pt. Spoke with Dr Velazquez on the unit regarding diet progression and need for nutrition support. Dr. Velazquez plans on initiating a clear liquid diet on 01/07, but does not feel pt will require PN at this time. MD is aware that Pt has been Clear liquid/NPO greater than 5 days.
[2019-01-06] MEDS: HYDROMORPHONE 1MG/1ML INJ IV PRN ×2 (17:04→20:20)
[2019-01-06] MEDS: ONDANSETRON HCL INJ 2MG/ML 2ML 2 MG/ML VIAL IV PRN (17:04)
--- NOTE | 2019-01-06 19:03 | NUR ---
RECEIVED REPORT FROM PREVIOUS NURSE. CALL LIGHT WITHIN REACH. PATIENT IN BED
[2019-01-07] VITALS (9 sets, daily range): BP systolic 116–197; BP diastolic 62–96
[2019-01-07] MEDS: METRONIDAZOLE 500MG/NS 100ML IV SCH ×5 (00:07→23:45)
[2019-01-07] MEDS: PIPER-TAZ 3.375 GM 50 ML IV SCH ×4 (03:07→20:49)
[2019-01-07] MEDS: HYDROMORPHONE 1MG/1ML INJ IV PRN ×7 (03:39→23:52)
[2019-01-07] MEDS: DEXTROSE 5%/LACTATED RINGERS 1,000 ML IV SCH ×2 (03:55→14:50)
--- NOTE | 2019-01-07 07:21 | NUR ---
Gave report to oncoming nurse. Call light within reach. Patient in bed.
[2019-01-07] MEDS: PANTOPRAZOLE SOD 40 MG TABEC PO SCH (07:30)
[2019-01-07] MEDS: ONDANSETRON HCL INJ 2MG/ML 2ML 2 MG/ML VIAL IV PRN ×3 (11:25→17:50)
--- NOTE | 2019-01-07 18:55 | NUR ---
Received report from previous nurse. Patient in bed. Call light within reach.
--- NOTE | 2019-01-07 20:10 | NUR ---
Call Dr. Erika Velazquez office because the patient sugar is 232 and she has no coverage. she takes insulin at home. waiting for Dr. Erika Velazquez to call back
[2019-01-07] MEDS ORDERED: DEXTROSE 50% SYRINGE 50 ML IV PRN (21:15)
[2019-01-07] MEDS ORDERED: LISINOPRIL 10 MG TAB PO ONE (21:15)
--- NOTE | 2019-01-07 21:15 | NUR ---
Dr. Erika Velazquez called back and I told him the patients finger stick was 232 and she takes insulin at home. He was also told that her blood pressure was 197/93. Dr. Abdullahi Velazquez ordered Lisinopril 10 mg daily and one now, levamir 20 units HS, and sliding scare Humalog low dose.
[2019-01-07] MEDS: INSULIN LISPRO 100 UNIT/1 ML 3ML VIAL SQ SCH (21:33)
[2019-01-07] MEDS: INSULIN GLARGINE 100 UNITS/ML VIAL SQ SCH (21:34)
[2019-01-08] VITALS (7 sets, daily range): BP systolic 123–193; BP diastolic 66–93
[2019-01-08] MEDS: DEXTROSE 5%/LACTATED RINGERS 1,000 ML IV SCH ×2 (01:48→18:21)
[2019-01-08] MEDS: PIPER-TAZ 3.375 GM 50 ML IV SCH ×3 (02:50→15:03)
[2019-01-08] MEDS: HYDROMORPHONE 1MG/1ML INJ IV PRN ×5 (02:54→18:15)
[2019-01-08] MEDS: METRONIDAZOLE 500MG/NS 100ML IV SCH (05:32)
--- NOTE | 2019-01-08 06:56 | NUR ---
Gave report to oncoming nurse. Call light within reach. Patient in bed.
[2019-01-08] MEDS: INSULIN LISPRO 100 UNIT/1 ML 3ML VIAL SQ SCH ×4 (08:03→20:38)
[2019-01-08] MEDS: PANTOPRAZOLE SOD 40 MG TABEC PO SCH (08:03)
[2019-01-08] MEDS: KETOROLAC TROMETHAMINE 30 MG/ML VIAL IM PRN ×2 (08:20→14:01)
[2019-01-08] MEDS: ONDANSETRON HCL INJ 2MG/ML 2ML 2 MG/ML VIAL IV PRN ×2 (08:30→18:14)
[2019-01-08] MEDS ORDERED: LISINOPRIL 10 MG TAB PO SCH (09:00)
[2019-01-08 11:37] LABS: BASOPHILS # (AUTO) 0.1 (0.0-0.1); BASOPHILS % 0.6 % (0.0-1.0); EOSINOPHILS # (AUTO) 0.4 (0.0-0.4); EOSINOPHILS % 2.2 % (0.0-6.0); HEMATOCRIT 37.8 % (34.2-44.1); HEMOGLOBIN 12.6 g/dL (12.0-16.0); LYMPHOCYTES # (AUTO) 3.8 (1.0-3.2); LYMPHOCYTES % 23.8 % (18.0-39.1); MEAN CORPUSCULAR HGB CONC 33.3 g/dL (31-35); MEAN CORPUSCULAR VOLUME 86.9 fL (81-99); MONOCYTES # (AUTO) 1.9 (0.2-0.8); MONOCYTES % 11.9 % (4.4-11.3); NEUTROPHILS # (AUTO) 9.8 (2.1-6.9); NEUTROPHILS % 60.9 % (38.7-80.0); PLATELET COUNT 622 x10e3/uL (140-360); RED BLOOD COUNT 4.35 x10e6/uL (3.6-5.1); RED CELL DISTRIBUTION WIDTH 13.8 % (11.7-14.4)
[2019-01-08 11:49] LABS: ANION GAP 12.1 mmol/L (8-16); BLOOD UREA NITROGEN 5 mg/dL (7-26); BUN/CREATININE RATIO 8 (6-25); CALCIUM 8.8 mg/dL (8.4-10.2); CARBON DIOXIDE 33 mmol/L (22-29); CHLORIDE 97 mmol/L (98-107); CREATININE, SERUM 0.64 mg/dL (0.57-1.11); EST GLOMERULAR FILTRATION RATE > 60 ML/MIN (60-); GLUCOSE 207 mg/dL (74-118); POTASSIUM 3.1 mmol/L (3.5-5.1); SODIUM 139 mmol/L (136-145)
--- NOTE | 2019-01-08 16:50 | NUR ---
Nutrition Intervention Note RD Recommendation(s) for Physician: - ADAT to goal of GI Soft, 1800 ADA - Recommend Glucerna Shake BID when diet advanced, pt denied Ensure Clear supplement. - Pt has been NPO/Clear liquids for 7 days, recommend initiation of TPN/PPN to ensure the pt is consuming the correct consistency of food, please consult for appropriate recommendations. -RD spoke with MD on Saturday 01/06 regarding TPN/PPN and RD spoke to nurse on 01/08 regarding initiation of TPN/PPN. Per rounds pt is supposed to d/c today, if pt does not d/c today, strongly recommend initiation of TPN if diet is not advanced. Plan of Care: RD following, diet and ONS rec's, monitoring for tolerance and adequacy Nutrition reason for involvement: Follow up RD Assessment 01/08 Follow up: Pt was seen resting in bed, pt has been transferred to the floors. NGT was removed on the . Clear liquid diet was started yesterday. Pt has been NPO/clear liquids for more than 5 days, spoke with nurse about diet advancement, if diet is not advance TPN/PPN is still recommended. He reported he will speak with MD about this. Discussed pt in rounds, pt is supposed to be d/c today. Pt reported she was tolerating the clear liquids but she did not like the taste of the broth. Pt also reported she did not like drinking ONS after Ensure Clear was recommended. Pt reported no N/V, still has not had a BM in her colostomy bag, denied chewing or swallowing issues as well as any food allergies at this time. As of now, pt is still clear liquids, TPN is still recommended to ensure she is consuming recommended calorie and protein needs here in the hospital. 01/06: Visited Pt. Spoke with Dr Velazquez on the unit regarding diet progression and need for nutrition support. Dr. Velazquez plans on initiating a clear liquid diet on 01/07, but does not feel pt will require PN at this time. MD is aware that Pt has been Clear liquid/NPO greater than 5 days. 01/04: Pt POD#1 for ex- lap with colostomy placement 2/[address] with 100 ml output at time of visit, pt resting and no family present. Pt discussed during am rounds. Chart reviewed. Current rec's remain appropriate. Will monitor and continue to follow. 01/02: 68 YOF admitted for diverticulitis of the large intestine, pt seen today per diet screen- NPO/Cl diet x 5 days. Pt discussed during am rounds. Pt reports good appetite and po intake [employer]OR. Pt reports UBW of 140-150#, no wt loss noted. Pt reports some N/V today 2/2 meds and fruit ice being too sweet to tolerance on an empty stomach. Pt reports varying tolerance of CL diet currently, states significant taste changes 2/2 abx currently. Per pt plan for surgery tomorrow- partial colectomy with colostomy placement. Will monitor and continue to follow. Principal Problems/Diagnoses: Diverticulitis of large intestine PMH: Diverticulosis, DM2 GI: LBM 01/03 x 2; +N/V 01/02, abd: flat Skin: abdominal incision Labs: 01/08: K 3.1, Cl 97, CO2 33, BUN 5, Gluc 207, POC GM 232 01/04: Na 140, K 3.5, BUN 5, Cr 0.6, Gluc 261, POC Gluc 158- 265 01/02: Na 138, K 3.8, BUN 6, Cr 0.65, Gluc 106 Meds: morphine, flagyl, protonix, abx, dilaudid, insulin IVF: Dextrose and LR at 50 ml/hr (60 gram dex, 204 kcal) Ht: 64 in Wt: 145 lb BMI: 24.9 IBW: 120 lb Malnutrition Evaluation (01/02/19) The patient does not meet criteria for a specified degree of malnutrition at this time. Will re-evaluate at follow-up as appropriate. Energy intake: <50% of estimated energy requirements for >5 days Weight loss: No wt loss Fat loss: none, art skinfold ample Muscle loss: none, clavicle not visible Supporting Evidence: Fluid accumulation: none observed Functional Status: no changes per pt Nutrition Prescription (Diet Order): NPO Estimated Nutritional Needs: 6243-2572 calories/day (25-30 kcal/kg CBW) 66-99 g protein/day (1-1.5 g pro/kg CBW) Diet Adequacy: Not meeting calorie needs, Not meeting protein needs Diet Tolerance: Tolerance varies Diet Education Needs Assessment: Diet education not indicated, patient on temporary/transition diet. Nutrition Care Level: High- pt is on clear liquids-not meeting needs Nutrition Diagnosis: Inadequate energy and protein intake related to diverticulitis as evidenced by pt pending surgical intervention, remains on CL diet, and not meeting needs. Goal: Patient will meet 75-100% of estimated needs by follow up Progress: progressing Interventions: CHO, fiber modified diet, Commercial beverage, Recommended Modifications, Collaboration with other providers Monitoring/Evaluation: Total energy intake, Total protein intake, Modified diet, Liquid supplement Signed: Ninfa Arteaga RD, [place] Addendum: 01/08/19 at 1655 by Ninfa Arteaga DIET Pt has been Npo/clear liquids for more than 7 days
--- NOTE | 2019-01-08 17:32 | NUR ---
ORDERS FROM DR MCALLISTER FOR LTAC CHOICE LETTER SIGNED FOR [facility] TOM NOTIFIED OF EVAL MOT INITIATED AND PLACED IN PACKET AT DESK PT CLEAR TO DC TO [facility] AFTER DR Aden CHAN SEEAbdullahi PT TODAY NURSE ARMANDO NOTIFIED OF ABOVE [facility] TO CALL MOT WHEN ACCEPTED
--- NOTE | 2019-01-08 19:13 | NUR ---
6PM MOT SECURED NURSE ARMANDO CALLED DR Aden CHAN TO NOTIFY HIM OF PT GOING TO [facility] HE STATES, "DON'T TRANSFER HER UNTIL I SEE HER TODAY, IM IN SURGERY AND WILL BE THERE LATER TO SEE HER"
--- NOTE | 2019-01-08 19:14 | NUR ---
RECEIVED REPORT FROM AM NURSE, PATIENT RESTING ON THE SIDE OF THE BED, FAMILY AT THE BEDSIDE. NO COMPLAINTS OR DISTRESS NOTED. WILL CONTINUE TO MONITOR. CALL LIGHT IN REACH.
[2019-01-08] MEDS ORDERED: MAGNESIUM HYDROXIDE 30 ML UDC PO ONE (20:00)
--- NOTE | 2019-01-08 20:20 | NUR ---
PATIENT WAS TRANSFER PER EMT TO [facility], REPORT WAS GIVEN TO SAM. PATIENT TRANSFER NO DISTRESS OR COMPLAINTS. FAMILY PRESENT.
[2019-01-08] MEDS: INSULIN GLARGINE 100 UNITS/ML VIAL SQ SCH (20:43)
== END 2019-01-08 21:03 | DRG 854 ==
LOC: ER 17:35 → ERHOLD 23:39 → MED/SURG3 12-29 11:40 → ICU 01-03 17:32 → MED/SURG 01-06 15:44
PROC: 0D1N074 Bypass Sigmoid Colon to Cutaneous with Autologous Tissue Substitute, Open Approach (ICD-10-PCS; 2019-01-03)
PROC: 0D1N4Z4 Bypass Sigmoid Colon to Cutaneous, Percutaneous Endoscopic Approach (ICD-10-PCS; principal; 2019-01-03 11:00)
DX: A41.9 Sepsis, unspecified organism (principal); K57.80 Diverticulitis of intestine, part unspecified, with perforation and abscess without bleeding; E11.9 Type 2 diabetes mellitus without complications; B19.20 Unspecified viral hepatitis C without hepatic coma; B18.2 Chronic viral hepatitis C; F17.200 Nicotine dependence, unspecified, uncomplicated
CPT/HCPCS: 36415; 71045; 74177; 80048; 80053; 81001; 82150; 82948; 83690; 85025; 88307; 93005; 97139; 99284; J1170; J1815; J1885; J1956; J2001; J2250; J2270; J2370; J2405; J2543; J3010; J3480; J7030; J7050; Q9967